=== PATIENT | female | born 1960 | race Two or more races ===

== ENCOUNTER 2016-06-27 17:56 | Inpatient (IN) | payer MEDICAID, OTHER ==
[2016-06-27] MEDS ORDERED: HYDROmorphone 1 MG/ML Syringe IVPUSH ONE (18:21)
[2016-06-27] MEDS ORDERED: Ondansetron 4 MG/2 ML SDV IVPUSH ONE (18:22)
[2016-06-27] MEDS ORDERED: Sodium Chloride 0.9% 1,000 ML IV SCH ×2 (18:30→22:00)
[2016-06-27] MEDS ORDERED: Sodium Chloride 0.9% 10 ML SDV FLUSH ONE (19:22)
[2016-06-27] MEDS ORDERED: Iopamidol 612 MG/ML 100 ML Bottle IV PRN (19:22)
[2016-06-27] MEDS: NS + KCl 20mEq/L 1,000 ML IV SCH (19:47)
[2016-06-27] MEDS ORDERED: metroNIDAZOLE/Normal Saline 500 MG in Premix Bag 1 BAG IV ONE (19:58)
[2016-06-27] MEDS ORDERED: Ciprofloxacin in D5W 400 MG in Premix Bag 1 BAG IV ONE ×2 (19:58)
[2016-06-27] MEDS ORDERED: Acetaminophen 1,000 MG in Premix Bag 1 BAG IV ONE (20:34)
--- NOTE | 2016-06-27 20:45 | EDM.PDOC ---
ED HPI GENERAL MEDICAL PROBLEM - General Chief Complaint: Abdominal Pain Stated Complaint: ABDOMINAL PAIN Time Seen by Provider: 06/27/16 18:10 Source of Information: Reports: Family, Size Painter History Limitations: Reports: Language Barrier - History of Present Illness INITIAL COMMENTS - FREE TEXT/NARRATIVE: History of present illness: [55-year-old female who is originally from [facility] presents with fever and abdominal pain. This is come on and last 2 days. She's been stateside for 7 years and has not returned home since coming. She lives at home and is to work there is no history of unusual tropical diseases while she was in [facility] and was able to obtain from the family. She is complaining of left flank and left lower quadrant abdominal pain. She's had some nausea and I think one episode of vomiting. She had an episode of diarrhea yesterday. She had a headache. No other symptoms but there is a significant language barrier Present.] Review of systems: As per history of present illness and below otherwise all systems reviewed and negative. Past medical history: As per history of present illness and as reviewed below otherwise noncontributory. Surgical history: As per history of present illness and as reviewed below otherwise noncontributory. Social history: No reported history of drug or alcohol abuse. Family history: As per history of present illness and as reviewed below otherwise noncontributory. Physical exam: HEENT: Atraumatic, normocephalic, pupils reactive, negative for conjunctival pallor or scleral icterus, mucous membranes moist, throat clear, neck supple, nontender, trachea midline. Lungs: Clear to auscultation, breath sounds equal bilaterally, chest nontender. Heart: S1S2, regular, negative for clicks, rubs, or JVD. Abdomen: She has mild tenderness to palpation along the left gutter and left lower quadrant. Otherwise her belly is not distended and does not seem to be any peritoneal signs. Bowel sounds are hypoactive. Pelvis: Stable nontender. Genitourinary: Deferred. Rectal: Deferred. Extremities: Atraumatic, negative for cords or calf pain. Neurovascular unremarkable. Neuro: Awake, alert, oriented. Cranial nerves II through XII unremarkable. Cerebellum unremarkable. Motor and sensory unremarkable throughout. Exam nonfocal. Diagnostics: [CBC demonstrates an elevated white count. See her PE is elevated above 10. Lactic acid is 2.5. She is slightly tachycardic but her blood pressure has been good. She is satting well without O2. Her mentation has been good chest x -ray appears clear with a normal size heart. Abdominal pelvic CT is showing a left pyelonephritis with air present within the calyces of the kidney. Air is also present within the bladder. Concern is raised for air producing gram- negative rods. Also she has the appearance of a chronic-appearing appendicitis. This does not appear acute and hence does not suggest the need for immediate surgical intervention.] Therapeutics: [She's received IV fluids. Her blood sugar sugar has been in the 200s but only treated that with IV fluids. I suspect she has underlying diabetes. I've ordered 400 mg of Cipro IV to be given in the ER. Blood cultures x2 have been obtained as well as urine culture.] Impression: [Left pyelonephritis Chronic appendicitis] Plan: [Patient will be admitted. I did speak with money who spoke with Dr. Forbes. We also spoke with the surgeon conference center coordinator regarding the appendix. He'll see her tomorrow. Patient will be treated with IV Cipro and IV Zosyn for her infection. ] Definitive disposition and diagnosis as appropriate pending reevaluation and review of above. Left Abdomen Pain Score (Numeric/FACES): 10 - Related Data Allergies Allergy/AdvReac Type Severity Reaction Status Date / Time No Known Allergies Allergy Verified 06/27/16 18:11 Home Meds: Home Meds NK [No Known Home Meds] 06/27/16 [History] Past Medical History - Past Health History Medical/Surgical History: Denies Medical/Surgical History Social & Family History - Tobacco Use Smoking Status *Q: Never Smoker - Caffeine Use Caffeine Use: Reports: Coffee, Soda - Recreational Drug Use Recreational Drug Use: No ED ROS GENERAL - Review of Systems Review Of Systems: ROS reveals no pertinent complaints other than HPI. ED EXAM, RENAL/ - Physical Exam Exam: See Below Course - Vital Signs Last Recorded V/S: Last Vital Signs Temp 38.6 C H 06/27/16 20:03 Pulse 104 H 06/27/16 20:03 Resp 18 06/27/16 20:03 BP 151/78 H 06/27/16 20:03 Pulse Ox 96 06/27/16 20:03 - Orders/Labs/Meds Orders: Active Orders 24 hr Category Date Time Status Rincon Catheter Insertion [Insert Urinary Catheter] [OM. Care 06/27/16 19:45 Ordered PC] Q24H Urinary Catheter Assessment [RC] ASDIRECTED Care 06/27/16 19:40 Active Abdomen Pelvis w Cont [CT] Stat Exams 06/27/16 19:12 Taken Chest 1V Frontal [CR] Stat Exams 06/27/16 18:23 Taken Head wo Cont [CT] Stat Exams 06/27/16 19:35 Taken CULTURE BLOOD [BC] Stat Lab 06/27/16 19:10 Received CULTURE BLOOD [BC] Stat Lab 06/27/16 19:10 Received CULTURE URINE [RM] Stat Lab 06/27/16 19:13 Received Acetaminophen [Ofirmev] 1,000 mg Med 06/27/16 20:34 Active Premix Bag 1 bag IV NOW Ciprofloxacin in D5W [Cipro in D5W 400 MG/200 ML] 400 Med 06/27/16 19:58 Active mg Premix Bag 1 bag IV ONETIME NS + KCl 20mEq/L [Normal Saline with 20 mEq KCl] 1,000 Med 06/27/16 19:45 Active ml IV ASDIRECTED metroNIDAZOLE/Normal Saline [Flagyl 500 MG in NS 100 ML Med 06/27/16 19:58 Active ] 500 mg Premix Bag 1 bag IV ONETIME Medication Orders Potassium Chloride/Sodium Chloride (Normal Saline With 20 Meq Kcl) 1,000 mls @ 150 mls/hr IV ASDIRECTED [facility] Last Admin: 06/27/16 19:47 Dose: 150 mls/hr Ciprofloxacin/Dextrose 400 mg/ (Premix) 200 mls @ 200 mls/hr IV ONETIME ONE Stop: 06/27/16 20:57 Last Admin: 06/27/16 20:25 Dose: 200 mls/hr Metronidazole 500 mg/ Premix 100 mls @ 100 mls/hr IV ONETIME ONE Stop: 06/27/16 20:57 Acetaminophen 1,000 mg/ Premix 100 mls @ 400 mls/hr IV NOW ONE Stop: 06/27/16 20:48 Labs: Laboratory Tests 06/27/16 06/27/16 06/27/16 Range/Units 18:28 18:28 18:38 WBC 16.4 H (4.5-11.0) K/uL RBC 4.65 (3.30-5.50) M/uL Hgb 14.0 (12.0-15.0) g/dL Hct 39.7 (36.0-48.0) % MCV 85 (80-98) fL MCH 30 (27-31) pg MCHC 35 (32-36) % Plt Count 281 (150-400) K/uL Add Manual Diff Yes Neutrophils % (Manual) 81 H (36-66) % Band Neutrophils % 16 H (5-11) % Lymphocytes % (Manual) 1 L (24-44) % Monocytes % (Manual) 2 (2-6) % ABG Hemoglobin (12.0-16.0) g/dL ABG Oxyhemoglobin % ABG Carboxyhemoglobin (0.0-1.6) % ABG Methemoglobin % VBG pH (7.350-7.450) VBG pCO2 mm/Hg VBG pO2 mm/Hg VBG HCO3 mmol/L VBG Total CO2 mmol/L VBG O2 Saturation VBG O2 Content %vol VBG Base Excess mm/L O2 Delivery Device Sodium 133 L (140-148) mmol/L Potassium 3.7 (3.6-5.2) mmol/L Chloride 94 L (100-108) mmol/L Carbon Dioxide 25 (21-32) mmol/L Anion Gap 17.7 H (5.0-14.0) mmol/L BUN 9 (7-18) mg/dL Creatinine 0.9 (0.6-1.0) mg/dL Est Cr Clr Drug Dosing 50.13 mL/min Estimated GFR (MDRD) > 60 (>60) Glucose 277 H (74-106) mg/dL Lactic Acid (0.4-2.0) mmol/L Calcium 8.4 L (8.5-10.1) mg/dL Total Bilirubin 1.0 (0.2-1.0) mg/dL AST 26 (15-37) U/L ALT 33 (12-78) U/L Alkaline Phosphatase 182 H (46-116) U/L C-Reactive Protein (0.0-0.3) mg/dL Total Protein 8.5 H (6.4-8.2) g/dL Albumin 3.8 (3.4-5.0) g/dL Globulin 4.7 H (2.3-3.5) g/dL Albumin/Globulin Ratio 0.8 L (1.2-2.2) Amylase 24 L (25-115) U/L Lipase 55 L (73-393) U/L TSH, Ultra Sensitive (0.358-3.740) uIU/mL Urine Color Urine Appearance Urine pH (4.5-8.0) Ur Specific [place] (1.008-1.030) Urine Protein (NEGATIVE) mg/dL Urine Glucose (UA) (NEGATIVE) mg/dL Urine Ketones (NEGATIVE) mg/dL Urine Occult Blood (NEGATIVE) Urine Nitrite (NEGATIVE) Urine Bilirubin (NEGATIVE) Urine Urobilinogen (NORMAL) mg/dL Ur Leukocyte Esterase (NEGATIVE) Urine RBC (0-5) Urine WBC (0-5) Ur Epithelial Cells Amorphous Sediment Urine Bacteria Urine Mucus Urine Opiates Screen Negative (NEGATIVE) Ur Oxycodone Screen Negative (NEGATIVE) Urine Methadone Screen Negative (NEGATIVE) Ur Propoxyphene Screen Negative (NEGATIVE) Ur Barbiturates Screen Negative (NEGATIVE) Ur Tricyclics Screen Negative (NEGATIVE) Ur Phencyclidine Scrn Negative (NEGATIVE) Ur Amphetamine Screen Negative (NEGATIVE) U Methamphetamines Scrn Negative (NEGATIVE) Urine MDMA Screen Negative (NEGATIVE) U Benzodiazepines Scrn Negative (NEGATIVE) U Cocaine Metab Screen Negative (NEGATIVE) U Marijuana (THC) Screen Negative (NEGATIVE) 06/27/16 06/27/16 06/27/16 Range/Units 18:38 18:53 18:53 WBC (4.5-11.0) K/uL RBC (3.30-5.50) M/uL Hgb (12.0-15.0) g/dL Hct (36.0-48.0) % MCV (80-98) fL MCH (27-31) pg MCHC (32-36) % Plt Count (150-400) K/uL Add Manual Diff Neutrophils % (Manual) (36-66) % Band Neutrophils % (5-11) % Lymphocytes % (Manual) (24-44) % Monocytes % (Manual) (2-6) % ABG Hemoglobin 13.0 (12.0-16.0) g/dL ABG Oxyhemoglobin 46.5 % ABG Carboxyhemoglobin 1.1 (0.0-1.6) % ABG Methemoglobin 0.7 % VBG pH 7.349 L (7.350-7.450) VBG pCO2 39.9 mm/Hg VBG pO2 26.9 mm/Hg VBG HCO3 21.4 mmol/L VBG Total CO2 19.6 mmol/L VBG O2 Saturation 47.4 VBG O2 Content 8.5 %vol VBG Base Excess -3.4 mm/L O2 Delivery Device Room air Sodium (140-148) mmol/L Potassium (3.6-5.2) mmol/L Chloride (100-108) mmol/L Carbon Dioxide (21-32) mmol/L Anion Gap (5.0-14.0) mmol/L BUN (7-18) mg/dL Creatinine (0.6-1.0) mg/dL Est Cr Clr Drug Dosing mL/min Estimated GFR (MDRD) (>60) Glucose (74-106) mg/dL Lactic Acid 2.5 H (0.4-2.0) mmol/L Calcium (8.5-10.1) mg/dL Total Bilirubin (0.2-1.0) mg/dL AST (15-37) U/L ALT (12-78) U/L Alkaline Phosphatase (46-116) U/L C-Reactive Protein (0.0-0.3) mg/dL Total Protein (6.4-8.2) g/dL Albumin (3.4-5.0) g/dL Globulin (2.3-3.5) g/dL Albumin/Globulin Ratio (1.2-2.2) Amylase (25-115) U/L Lipase (73-393) U/L TSH, Ultra Sensitive (0.358-3.740) uIU/mL Urine Color Yellow Urine Appearance Cloudy Urine pH 7.0 (4.5-8.0) Ur Specific [place] 1.005 L (1.008-1.030) Urine Protein Negative (NEGATIVE) mg/dL Urine Glucose (UA) 1000 H (NEGATIVE) mg/dL Urine Ketones 50 H (NEGATIVE) mg/dL Urine Occult Blood Negative (NEGATIVE) Urine Nitrite Negative (NEGATIVE) Urine Bilirubin Negative (NEGATIVE) Urine Urobilinogen Normal (NORMAL) mg/dL Ur Leukocyte Esterase Negative (NEGATIVE) Urine RBC 0-5 (0-5) Urine WBC 0-5 (0-5) Ur Epithelial Cells Rare Amorphous Sediment Not seen Urine Bacteria Many Urine Mucus Not seen Urine Opiates Screen (NEGATIVE) Ur Oxycodone Screen (NEGATIVE) Urine Methadone Screen (NEGATIVE) Ur Propoxyphene Screen (NEGATIVE) Ur Barbiturates Screen (NEGATIVE) Ur Tricyclics Screen (NEGATIVE) Ur Phencyclidine Scrn (NEGATIVE) Ur Amphetamine Screen (NEGATIVE) U Methamphetamines Scrn (NEGATIVE) Urine MDMA Screen (NEGATIVE) U Benzodiazepines Scrn (NEGATIVE) U Cocaine Metab Screen (NEGATIVE) U Marijuana (THC) Screen (NEGATIVE) 06/27/16 Range/Units 18:53 WBC (4.5-11.0) K/uL RBC (3.30-5.50) M/uL Hgb (12.0-15.0) g/dL Hct (36.0-48.0) % MCV (80-98) fL MCH (27-31) pg MCHC (32-36) % Plt Count (150-400) K/uL Add Manual Diff Neutrophils % (Manual) (36-66) % Band Neutrophils % (5-11) % Lymphocytes % (Manual) (24-44) % Monocytes % (Manual) (2-6) % ABG Hemoglobin (12.0-16.0) g/dL ABG Oxyhemoglobin % ABG Carboxyhemoglobin (0.0-1.6) % ABG Methemoglobin % VBG pH (7.350-7.450) VBG pCO2 mm/Hg VBG pO2 mm/Hg VBG HCO3 mmol/L VBG Total CO2 mmol/L VBG O2 Saturation VBG O2 Content %vol VBG Base Excess mm/L O2 Delivery Device Sodium (140-148) mmol/L Potassium (3.6-5.2) mmol/L Chloride (100-108) mmol/L Carbon Dioxide (21-32) mmol/L Anion Gap (5.0-14.0) mmol/L BUN (7-18) mg/dL Creatinine (0.6-1.0) mg/dL Est Cr Clr Drug Dosing mL/min Estimated GFR (MDRD) (>60) Glucose (74-106) mg/dL Lactic Acid (0.4-2.0) mmol/L Calcium (8.5-10.1) mg/dL Total Bilirubin (0.2-1.0) mg/dL AST (15-37) U/L ALT (12-78) U/L Alkaline Phosphatase (46-116) U/L C-Reactive Protein 10.36 H (0.0-0.3) mg/dL Total Protein (6.4-8.2) g/dL Albumin (3.4-5.0) g/dL Globulin (2.3-3.5) g/dL Albumin/Globulin Ratio (1.2-2.2) Amylase (25-115) U/L Lipase (73-393) U/L TSH, Ultra Sensitive 1.070 (0.358-3.740) uIU/mL Urine Color Urine Appearance Urine pH (4.5-8.0) Ur Specific [place] (1.008-1.030) Urine Protein (NEGATIVE) mg/dL Urine Glucose (UA) (NEGATIVE) mg/dL Urine Ketones (NEGATIVE) mg/dL Urine Occult Blood (NEGATIVE) Urine Nitrite (NEGATIVE) Urine Bilirubin (NEGATIVE) Urine Urobilinogen (NORMAL) mg/dL Ur Leukocyte Esterase (NEGATIVE) Urine RBC (0-5) Urine WBC (0-5) Ur Epithelial Cells Amorphous Sediment Urine Bacteria Urine Mucus Urine Opiates Screen (NEGATIVE) Ur Oxycodone Screen (NEGATIVE) Urine Methadone Screen (NEGATIVE) Ur Propoxyphene Screen (NEGATIVE) Ur Barbiturates Screen (NEGATIVE) Ur Tricyclics Screen (NEGATIVE) Ur Phencyclidine Scrn (NEGATIVE) Ur Amphetamine Screen (NEGATIVE) U Methamphetamines Scrn (NEGATIVE) Urine MDMA Screen (NEGATIVE) U Benzodiazepines Scrn (NEGATIVE) U Cocaine Metab Screen (NEGATIVE) U Marijuana (THC) Screen (NEGATIVE) Meds: Medications Generic Name Dose Route Start Last Admin Trade Name Chrisq PRN Reason Stop Dose Admin Potassium Chloride/Sodium Chloride 1,000 mls @ 150 mls/hr 06/27/16 19:45 01/03 19:47 Normal Saline With 20 Meq Kcl IV 150 mls/hr ASDIRECTED OPAL Administration Ciprofloxacin/Dextrose 400 mg/ 200 mls @ 200 mls/hr 06/27/16 19:58 06/27/16 20:25 Premix IV 06/27/16 20:57 200 mls/hr ONETIME ONE Administration Metronidazole 500 mg/ Premix 100 mls @ 100 mls/hr 06/27/16 19:58 IV 06/27/16 20:57 ONETIME ONE Acetaminophen 1,000 mg/ Premix 100 mls @ 400 mls/hr 06/27/16 20:34 IV 06/27/16 20:48 NOW ONE Discontinued Medications Generic Name Dose Route Start Last Admin Trade Name Vicente PRN Reason Stop Dose Admin Hydromorphone HCl 0.5 mg 06/27/16 18:21 06/27/16 18:45 Dilaudid IVPUSH 06/27/16 18:22 0.5 mg ONETIME ONE Administration Sodium Chloride 1,000 mls @ 999 mls/hr 06/27/16 18:30 06/27/16 18:41 Normal Saline IV 500 mls/hr ASDIRECTED OPAL Administration Sodium Chloride 70 mls @ 3 mls/sec 06/27/16 19:22 06/27/16 19:45 Normal Saline IV 06/27/16 19:23 3 mls/sec ONETIME ONE Administration Iopamidol 78 ml 06/27/16 19:22 06/27/16 19:45 Isovue-300 (61%) IV 06/27/16 19:23 100 ml . DIRECTED PRN Administration RADIOLOGY EXAM Ondansetron HCl 4 mg 06/27/16 18:22 06/27/16 18:42 Zofran IVPUSH 06/27/16 18:23 4 mg ONETIME ONE Administration Sodium Chloride 10 ml 06/27/16 19:22 Normal Saline FLUSH 06/27/16 19:23 ONETIME ONE Departure - Departure Time of Disposition: 20:45 Disposition: Admitted As Inpatient 65 Condition: fair Clinical Impression: Acute pyelonephritis, Chronic appendicitis - Discharge Information Forms: ED Department Discharge - My Orders Last 24 Hours: My Active Orders 06/27/16 18:23 Chest 1V Frontal [CR] Stat 06/27/16 19:10 CULTURE BLOOD [BC] Stat CULTURE BLOOD [BC] Stat 06/27/16 19:12 Abdomen Pelvis w Cont [CT] Stat 06/27/16 19:13 CULTURE URINE [RM] Stat 06/27/16 19:35 Head wo Cont [CT] Stat 06/27/16 19:40 Urinary Catheter Assessment [RC] ASDIRECTED 06/27/16 19:45 Rincon Catheter Insertion [Insert Urinary Catheter] [OM.PC] Q24H NS + KCl 20mEq/L [Normal Saline with 20 mEq KCl] 1,000 ml IV ASDIRECTED 06/27/16 19:58 Ciprofloxacin in D5W [Cipro in D5W 400 MG/200 ML] 400 mg Premix Bag 1 bag IV ONETIME metroNIDAZOLE/Normal Saline [Flagyl 500 MG in NS 100 ML] 500 mg Premix Bag 1 bag IV ONETIME - Assessment/Plan Last 24 Hours: My Active Orders 06/27/16 18:23 Chest 1V Frontal [CR] Stat 06/27/16 19:10 CULTURE BLOOD [BC] Stat CULTURE BLOOD [BC] Stat 06/27/16 19:12 Abdomen Pelvis w Cont [CT] Stat 06/27/16 19:13 CULTURE URINE [RM] Stat 06/27/16 19:35 Head wo Cont [CT] Stat 06/27/16 19:40 Urinary Catheter Assessment [RC] ASDIRECTED 06/27/16 19:45 Rincon Catheter Insertion [Insert Urinary Catheter] [OM.PC] Q24H NS + KCl 20mEq/L [Normal Saline with 20 mEq KCl] 1,000 ml IV ASDIRECTED 06/27/16 19:58 Ciprofloxacin in D5W [Cipro in D5W 400 MG/200 ML] 400 mg Premix Bag 1 bag IV ONETIME metroNIDAZOLE/Normal Saline [Flagyl 500 MG in NS 100 ML] 500 mg Premix Bag 1 bag IV ONETIME
[2016-06-27] MEDS ORDERED: Diphtheria,Pertussis(Acell),Tetanus Vaccine 0.5 ML SDV IM ONE (21:28)
[2016-06-27] MEDS ORDERED: Sodium Chloride 0.9% 1,000 ML IV ONE (23:21)
[2016-06-27] MEDS ORDERED: Hydrocortisone Sodium Succinate 100 MG/2 ML SDV IVPUSH ONE (23:21)
[2016-06-27] MEDS ORDERED: Ondansetron 4 MG/2 ML SDV IVPUSH PRN (23:23)
[2016-06-27] MEDS ORDERED: LORazepam 2 MG/ML MDV IV PRN (23:23)
[2016-06-27] MEDS ORDERED: Albuterol 0.083% 2.5 MG/3 ML Neb Soln NEB PRN (23:23)
[2016-06-27] MEDS ORDERED: Docusate Sodium 100 MG Cap PO PRN (23:23)
[2016-06-27] MEDS ORDERED: Magnesium Hydroxide 400 MG/5 ML Susp 30 ML Cup PO PRN (23:23)
[2016-06-27] MEDS ORDERED: HYDROmorphone 1 MG/ML Syringe IVPUSH PRN (23:23)
[2016-06-27] MEDS ORDERED: Ascorbic Acid 500 MG Tab PO ONE (23:28)
[2016-06-28] MEDS ORDERED: Pantoprazole 40 MG Vial IV SCH
[2016-06-28] MEDS ORDERED: Piperacillin/Tazobactam 3.375 GM in Sodium Chloride 0.9% 50 ML IV SCH ×2
[2016-06-28] MEDS ORDERED: Sodium Chloride 0.9% 100 ML ONE ×2 (00:27→05:24)
--- NOTE | 2016-06-28 00:28 | PCM.HP ---
H&P History of Present Illness - General Date of Service: 06/27/16 Admit Problem/Dx: Admission Diagnosis/Problem Admission Diagnosis/Problem Pyelonephritis Source of Information: Filling Mixer (Milla) History Limitations: Reports: Other (lethargic) - History of Present Illness Initial Comments - Free Text/Narative: ED Renal/ Complaint Patient Name: THERESE LUNDBERG Date of : 58 Patient Status: Inpatient Attending Provider: Chalino Forbes Date: 06/27/16 20:38 Initialization Date: 06/27/16 20:38 ED HPI GENERAL MEDICAL PROBLEM - General Chief Complaint: Abdominal Pain Stated Complaint: ABDOMINAL PAIN Time Seen by Provider: 06/27/16 18:10 Source of Information: Reports: Family, Filling Mixer History Limitations: Reports: Language Barrier - History of Present Illness INITIAL COMMENTS - FREE TEXT/NARRATIVE: History of present illness: 55-year-old female who is originally from [facility] presents with fever and abdominal pain. This is come on and last 2 days. [place] been [place] and has not returned home since coming. She lives at home and is to work there is no history of unusual tropical diseases while she was in [facility] and was able to obtain from the family. She is complaining of left flank and left lower quadrant abdominal pain. She's had some nausea and I think one episode of vomiting. She had an episode of diarrhea yesterday. She had a headache. No other symptoms but there is a significant language barrier Present.] Review of systems: As per history of present illness and below otherwise all systems reviewed and negative. Past medical history: As per history of present illness and as reviewed below otherwise noncontributory. reports has never been to a hospital or clinic. no history of immunization has 12 children all delivered at her home. Surgical history: As per history of present illness and as reviewed below otherwise noncontributory. Social history: No reported history of drug or alcohol abuse. Family history: As per history of present illness and as reviewed below otherwise noncontributory. Physical exam: HEENT: Atraumatic, normocephalic, pupils reactive, negative for conjunctival pallor or scleral icterus, mucous membranes moist, throat clear, neck supple, nontender, trachea midline. Lungs: Clear to auscultation, breath sounds equal bilaterally, chest nontender. Heart: S1S2, regular, negative for clicks, rubs, or JVD. Abdomen: She has mild tenderness to palpation along the left gutter and left lower quadrant. Otherwise her belly is not distended and does not seem to be any peritoneal signs. Bowel sounds are hypoactive. Pelvis: Stable nontender. Genitourinary: Deferred. Rectal: Deferred. Extremities: Atraumatic, negative for cords or calf pain. Neurovascular unremarkable. Neuro: Awake, alert, oriented. Cranial nerves II through XII unremarkable. Cerebellum unremarkable. Motor and sensory unremarkable throughout. Exam nonfocal. Diagnostics: [CBC demonstrates an elevated white count. See her PE is elevated above 10. Lactic acid is 2.5. She is slightly tachycardic but her blood pressure has been good. She is oxygenating well without O2. Her mentation has been good, chest x-ray appears clear with a normal size heart. Abdominal pelvic CT is showing a left pyelonephritis with air present within the calyces of the kidney. Air is also present within the bladder. Concern is raised for air producing gram-negative rods. Also she has the appearance of a chronic- appearing appendicitis. This does not appear acute and hence does not suggest the need for immediate surgical intervention. Therapeutics: [She's received IV fluids. Her blood sugar sugar has been in the 200s but only treated that with IV fluids. I suspect she has underlying diabetes. I've ordered 400 mg of Cipro IV to be given in the ER. Blood cultures x2 have been obtained as well as urine culture.] Impression: [Left pyelonephritis Chronic appendicitis] Plan: [Patient will be admitted. I did speak with money who spoke with Dr. Forbes. We also spoke with the surgeon spinner concrete pipe regarding the appendix. He'll see her tomorrow. Patient will be treated with IV Cipro and IV Zosyn for her infection. ] Definitive disposition and diagnosis as appropriate pending reevaluation and review of above. Onset of Symptoms: Reports: gradual Duration of Symptoms: Reports: Resolved prior to arrival Location: Reports: abdomen (family report she has been complaining of right lower abdominal pain for 2 months, fevers for the past 2 days) Quality: Reports: Other (unable to assess due to language barrier) Improves with: Reports: None Worsens with: Reports: None Associated Symptoms: Reports: fever/chills, loss of appetite, malaise, nausea/ vomiting, weakness Left Abdomen Pain Score (Numeric/FACES): 10 - Related Data Allergies/Adverse Reactions: Allergies Allergy/AdvReac Type Severity Reaction Status Date / Time No Known Allergies Allergy Verified 06/27/16 18:11 Home Medications: Home Meds NK [No Known Home Meds] 06/27/16 [History] Past Medical History - Past Health History Medical/Surgical History: Denies 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: Social & Family History - Family History Family Medical History: Noncontributory - Tobacco Use Smoking Status *Q: Never Smoker - Caffeine Use Caffeine Use: Reports: Coffee, Soda - Recreational Drug Use Recreational Drug Use: No - Living Situation & Occupation Living situation: Reports: with family Occupation: unemployed (lives family, daughter, grandchildren and extended family and friends in [place], [place].) H&P Review of Systems - Review of Systems: Review Of Systems: See Below General: Reports: Fever, Chills, Malaise, Decreased Appetite HEENT: Reports: No Symptoms Pulmonary: Reports: No Symptoms Cardiovascular: Reports: No Symptoms Gastrointestinal: Reports: Abdominal Pain, Nausea Genitourinary: Reports: Dysuria, Frequency, Hematuria, Flank Pain Musculoskeletal: Reports: No Symptoms Skin: Reports: Pallor Psychiatric: Reports: No Symptoms Neurological: Reports: Weakness Hematologic/Lymphatic: Reports: No Symptoms Immunologic: Reports: No Symptoms Review of Systems Comment:: language barrier; speaks a dialect of Croatian slovak called Jackeline. She has a friend here at bedside to speak on behalf of patient and family. Exam - Exam Exam: See Below - Vital Signs Vital Signs: Last Vital Signs Temp 38.9 C H 06/27/16 23:11 Pulse 98 06/28/16 00:00 Resp 18 06/27/16 23:11 BP 61/33 L 06/28/16 00:00 Pulse Ox 97 06/28/16 00:00 Weight: 52.3 kg - Exam Quality Assessment: Supplemental Oxygen General: Lethargic HEENT: Conjunctiva Clear, EACs Clear, EOMI, Hearing Intact (opens eyes to voice) , Normal Nasal Septum, Posterior Pharynx Clear, Pupils Equal, Pupils Reactive Neck: Supple, Trachea Midline Lungs: Clear to Auscultation, Normal Respiratory Effort Cardiovascular: Regular Rhythm, Normal S1, Normal S2, Tachycardia Abdomen: Rebound (rlq), Tenderness (and left flank), Hypoactive Bowel Sounds, McBurney's Sign (Female) Exam: Deferred Rectal (Female) Exam: Deferred Back Exam: Normal Inspection, Full Range of Motion Extremities: Normal Inspection, Normal Pulses Skin: Warm, Dry, Intact, Other (warm) Neurological: Reflexes Equal Bilateral Neuro Extensive - Mental Status: Opens Eyes to Commands Psychiatric: Other (lethargic) - Patient Data Result Diagrams: 06/28/16 04:16 06/28/16 04:16 *Q Meaningful Use (ADM) - VTE *Q VTE Criteria *Q: - Stroke *Q Stroke Criteria *Q: - AMI *Q AMI Criteria *Q: - Problem List (1) Acute pyelonephritis SNOMED Code(s): 22942226 ICD Code: N10 - ACUTE PYELONEPHRITIS Status: Acute Priority: High Current Visit: Yes (2) Chronic appendicitis SNOMED Code(s): 80875730 ICD Code: K36 - OTHER APPENDICITIS Status: Acute Priority: High Current Visit: Yes Problem List Initiated/Reviewed/Updated: Yes Orders Last 24hrs: Active Orders 24 hr Category Date Time Status Patient Status [ADT] Routine ADT 06/27/16 23:23 Active Bedrest Bathroom Privileges [RC] ASDIRECTED Care 06/27/16 23:23 Active Cardiac Monitoring [RC] .As Directed Care 06/27/16 23:23 Active Diabetes Education [RC] Click to Edit Care 06/27/16 23:23 Active Intake and Output [RC] QSHIFT Care 06/27/16 23:23 Active Notify Provider Consults [RC] ASDIRECTED Care 06/27/16 23:23 Active Oxygen Therapy [RC] PRN Care 06/27/16 23:23 Active RT Aerosol Therapy [RC] ASDIRECTED Care 06/27/16 23:23 Active Up With Assistance [RC] ASDIRECTED Care 06/27/16 23:23 Active VTE/DVT Education [RC] Per Unit Routine Care 06/27/16 23:23 Active Vital Signs [RC] Q4H Care 06/27/16 23:23 Active Consult to Case Management [CONS] Routine Cons 06/27/16 23:23 Active Consult to Physician [CONS] Routine Cons 06/27/16 23:23 Ordered Consult to Fulfillment Coordinator [CONS] Routine Cons 06/27/16 23:23 Active OT Evaluation and Treatment [CONS] Routine Cons 06/27/16 23:23 Active PT Evaluation and Treatment [CONS] Routine Cons 06/27/16 23:23 Active Nothing per Oral After Midnight Diet [DIET] Diet 06/27/16 Breakfast Active BASIC METABOLIC PANEL,BMP [CHEM] AM Lab 06/28/16 05:11 Ordered CBC WITH AUTO DIFF [HEME] AM Lab 06/28/16 05:11 Ordered LACTIC ACID [CHEM] Timed Lab 06/28/16 00:10 Ordered Albuterol [Proventil Neb Soln] Med 06/27/16 23:23 Active 2.5 mg NEB Q4H PRN Docusate Sodium [Colace] Med 06/27/16 23:23 Active 100 mg PO BID PRN Flu Vaccine (36Mos+)/PF [Fluzone/Fluarix Med 06/29/16 09:00 Once Vaccine] 60 mcg IM .ONCE ONE HYDROmorphone [Dilaudid] Med 06/28/16 00:22 Ordered See Dose Instructions IVPUSH Q2H PRN Insulin Aspart [NovoLOG] Med 06/27/16 23:23 Active See Protocol SUBCUT ASDIRECTED LORazepam [Ativan] Med 06/27/16 23:23 Active 1 mg IV Q6H PRN Magnesium Hydroxide [Milk of Magnesia] Med 06/27/16 23:23 Active 30 ml PO Q12H PRN Morphine Med 06/27/16 23:23 Active 2 mg IVPUSH Q2H PRN Ondansetron [Zofran] Med 06/27/16 23:23 Active 4 mg IVPUSH Q4H PRN Pantoprazole [ProTONIX IV] Med 06/28/16 00:00 Active 40 mg IV Q12H Piperacillin/Tazobactam/Dext [Zosyn in Dextrose Iso- Med 06/28/16 00:00 Active Osmotic 3.375 GM] 3.375 gm Premix Bag 1 bag IV Q6H Sequential Compression Device [OM.PC] Per Unit Routine Oth 06/27/16 23:23 Ordered Resuscitation Status Routine Resus Stat 06/27/16 21:57 Ordered Medication Orders Albuterol (Proventil Neb Soln) 2.5 mg NEB Q4H PRN PRN Reason: Shortness Of Breath/wheezing Docusate Sodium (Colace) 100 mg PO BID PRN PRN Reason: Constipation Potassium Chloride/Sodium Chloride (Normal Saline With 20 Meq Kcl) 1,000 mls @ 150 mls/hr IV ASDIRECTED [facility] Last Admin: 06/27/16 19:47 Dose: 150 mls/hr Sodium Chloride (Normal Saline) 1,000 mls @ 500 mls/hr IV ASDIRECTED [facility] Last Admin: 06/27/16 22:09 Dose: 500 mls/hr Piperacillin/Tazobactam/ (Dextrose 3.375 gm/ Premix) 50 mls @ 100 mls/hr IV Q6H [facility] Influenza Virus Vaccine (Fluzone/Fluarix Vaccine) 60 mcg IM .ONCE ONE Stop: 06/29/16 09:01 Insulin Aspart (Novolog) 0 unit SUBCUT ASDIRECTED [facility] PRN Reason: Protocol Lorazepam (Ativan) 1 mg IV Q6H PRN PRN Reason: Nausea/Vomiting Magnesium Hydroxide (Milk Of Magnesia) 30 ml PO Q12H PRN PRN Reason: Constipation Morphine Sulfate (Morphine) 2 mg IVPUSH Q2H PRN PRN Reason: Pain (severe 7-10) Ondansetron HCl (Zofran) 4 mg IVPUSH Q4H PRN PRN Reason: Nausea/Vomiting Pantoprazole Sodium (Protonix Iv) 40 mg IV Q12H [facility] Last Admin: 06/28/16 00:18 Dose: 40 mg Assessment/Plan Comment:: ASSESSMENT / PLAN History of present illness: 55-year-old female who is originally from [facility] presents with fever and abdominal pain. This is come on and last 2 days. She[place] been [place] 7 [place] and has not returned home since coming. She lives at home and is to work there is no history of unusual tropical diseases while she was in [facility] and was able to obtain from the family. She is complaining of left flank and left lower quadrant abdominal pain. She's had some nausea and I think one episode of vomiting. She had an episode of diarrhea yesterday. She had a headache. No other symptoms but there is a significant language barrier Present. Plan -Admit to ICU Med overflow for further monitoring -IV antibiotics Zoysn 3.375 mg IV every 6 hours -IV Hydrocortisone 100 mg IV -IV medicate for pain. -IV bolus for hypotension -Lactic acid order for 2400, 0600 -Telemetry -Oxygen per nasal cannula -IV fluids Normal Saline with 20 KCL meq at 150 mL per hour -Advise to notify nurses of any chest pain or other symptoms -immunization; Tdap 0.5ml updated. -And a.m. labs: CBC, BMP, lactic acid -consult Dr. Parrish, Surgeon, will evaluate in am. -consult with Internal Medicine Maintenance issues -Nutrition: NPO -Rincon catheter -DVT: SCD -PPI; Protonix 40 mg IV -referral to Fulfillment Coordinator, PT, OT CODE STATUS: Full Admission status: Admit to ICU Medication Overflow Admission justification. This patient will be admitted for inpatient services and is medically appropriate meeting medical necessity for inpatient admission as outlined in my documentation. I reasonably expect the patient will require inpatient services that span. Time over 2 midnights. I reasonably expect this patient to be discharged or transferred within 96 hours after admission to the critical access hospital. Disposition; home with family Primary care provider: non noted family Filling Mixer: Milla [phone]
[2016-06-28] MEDS: Piperacillin/Tazobactam/Dext 3.375 GM in Premix Bag 1 BAG IV SCH ×5 (00:36→23:45)
[2016-06-28] MEDS: Norepinephrine 4 MG in Dextrose 5% in Water 246 ML IV SCH ×10 (01:04→21:26)
[2016-06-28] MEDS: NS + KCl 20mEq/L 1,000 ML IV SCH ×4 (02:18→22:51)
[2016-06-28] MEDS ORDERED: Sodium Chloride 0.9% 250 ML IV SCH (02:30)
[2016-06-28] MEDS ORDERED: Acetaminophen 1,000 MG in Premix Bag 1 BAG IV PRN (05:02)
[2016-06-28] MEDS: Insulin Aspart 100 Units/ML 3 ML Pen SUBCUT SCH ×5 (05:54→21:13)
[2016-06-28] MEDS: HYDROmorphone 1 MG/ML Syringe IVPUSH PRN ×3 (06:09→16:14)
[2016-06-28] MEDS ORDERED: Ketorolac 30 MG/ML SDV IVPUSH PRN (08:17)
[2016-06-28] MEDS ORDERED: Acetaminophen 325 MG Tab PO PRN (08:18)
--- NOTE | 2016-06-28 08:32 | CR ---
Chest 1V Frontal INDICATION: abd pain COMPARISON: None FINDINGS: 2 portable views of the chest. Heart size normal. Ill-defined density in the left suprahilar region likely vascular though pulmonary nodule not exclud ed. Probable calcified granulomas in the lungs. No focal consolidation or signs of pulmonary edema. No pleural effusions. IMPRESSION: 1. Nothing acute. 2. Presumed vascular shadow left suprahilar region though comparison with prior outside studies mike mmended to exclude pulmonary nodule. If none, recommend CT chest without IV contrast. 3. Old granulomatous disease.
[2016-06-28] MEDS ORDERED: Potassium Chloride 20 MEQ Tab.ER PO ONE (09:00)
[2016-06-28] MEDS ORDERED: Sodium Chloride 0.9% 500 ML IV SCH (09:00)
--- NOTE | 2016-06-28 09:23 | PCM.PN ---
- General Info Date of Service: 06/28/16 Functional Status: Reports: pain controlled, ambulating - Review of Systems General: Reports: Fever, Weakness Gastrointestinal: Denies: Abdominal pain Systems Review Comment:: Overnight Ai had deterioration of her blood pressure following admission. She required multiple fluid boluses and despite this she had persistent hypotension necessitating the initiation of norepinephrine. Her blood pressure has stabilized after the medication was titrated up to 12 mcg per minute. She also received a dose of hydrocortisone last night. Temperature curve has been slowly improving. Heart rate has normalized. Through the help of her daughter in a separate phlebotomy technologist she reports that she feels a little better today. She does not report any pain though she does grimace when I press on the left side of her abdomen. She does not feel short of breath. She's not requiring supplemental oxygen. - Patient Data Vitals - most recent: Last Vital Signs Temp 38.3 C H 06/28/16 07:41 Pulse 94 06/28/16 07:41 Resp 23 H 06/28/16 07:41 BP 92/50 L 06/28/16 07:41 Pulse Ox 97 06/28/16 07:41 Weight - most recent: 52.3 kg I&O - last 24 hours: Intake & Output 06/27/16 06/28/16 06/28/16 22:59 06:59 14:59 Intake Total 2146 500 Output Total 650 187 185 Balance -650 1959 315 Lab Results last 24 hrs: Laboratory Results - last 24 hr 06/28/16 06/28/16 06/28/16 Range/Units 04:16 04:16 04:16 WBC 20.8 H (4.5-11.0) K/uL RBC 3.68 (3.30-5.50) M/uL Hgb 11.1 L D (12.0-15.0) g/dL Hct 32.0 L (36.0-48.0) % MCV 87 (80-98) fL MCH 30 (27-31) pg MCHC 35 (32-36) % Plt Count 223 (150-400) K/uL Add Manual Diff Yes Neutrophils % (Manual) 77 H (36-66) % Band Neutrophils % 16 H (5-11) % Lymphocytes % (Manual) 3 L (24-44) % Monocytes % (Manual) 3 (2-6) % Eosinophils % (Manual) 1 L (2-4) % Sodium 135 L (140-148) mmol/L Potassium 3.3 L (3.6-5.2) mmol/L Chloride 102 (100-108) mmol/L Carbon Dioxide 18 L (21-32) mmol/L Anion Gap 18.3 H (5.0-14.0) mmol/L BUN 11 (7-18) mg/dL Creatinine 1.2 H (0.6-1.0) mg/dL Est Cr Clr Drug Dosing 37.60 mL/min Estimated GFR (MDRD) 46 L (>60) Glucose 336 H (74-106) mg/dL Hemoglobin A1c (4.5-6.2) % Lactic Acid 1.8 (0.4-2.0) mmol/L Calcium 6.4 L* D (8.5-10.1) mg/dL Magnesium (1.8-2.4) mg/dL 06/28/16 06/28/16 Range/Units 08:27 08:27 WBC (4.5-11.0) K/uL RBC (3.30-5.50) M/uL Hgb (12.0-15.0) g/dL Hct (36.0-48.0) % MCV (80-98) fL MCH (27-31) pg MCHC (32-36) % Plt Count (150-400) K/uL Add Manual Diff Neutrophils % (Manual) (36-66) % Band Neutrophils % (5-11) % Lymphocytes % (Manual) (24-44) % Monocytes % (Manual) (2-6) % Eosinophils % (Manual) (2-4) % Sodium (140-148) mmol/L Potassium (3.6-5.2) mmol/L Chloride (100-108) mmol/L Carbon Dioxide (21-32) mmol/L Anion Gap (5.0-14.0) mmol/L BUN (7-18) mg/dL Creatinine (0.6-1.0) mg/dL Est Cr Clr Drug Dosing mL/min Estimated GFR (MDRD) (>60) Glucose (74-106) mg/dL Hemoglobin A1c 12.5 H (4.5-6.2) % Lactic Acid (0.4-2.0) mmol/L Calcium (8.5-10.1) mg/dL Magnesium 1.0 L (1.8-2.4) mg/dL Med Orders - Current: Current Medications Acetaminophen (Tylenol) 650 mg PO Q4H PRN PRN Reason: Pain/Fever Albuterol (Proventil Neb Soln) 2.5 mg NEB Q4H PRN PRN Reason: Shortness Of Breath/wheezing Docusate Sodium (Colace) 100 mg PO BID PRN PRN Reason: Constipation Hydrocortisone Sodium Succinate (Solu-Cortef) 100 mg IVPUSH ONETIME ONE Stop: 06/28/16 09:31 Hydromorphone HCl (Dilaudid) 0.5 - 1 mg IVPUSH Q2H PRN PRN Reason: Abdominal Pain Last Admin: 06/28/16 06:09 Dose: 0.5 mg Potassium Chloride/Sodium Chloride (Normal Saline With 20 Meq Kcl) 1,000 mls @ 150 mls/hr IV ASDIRECTED [facility] Last Admin: 06/28/16 09:19 Dose: 150 mls/hr Piperacillin/Tazobactam/ (Dextrose 3.375 gm/ Premix) 50 mls @ 100 mls/hr IV Q6H [facility] Last Admin: 06/28/16 05:40 Dose: 100 mls/hr Norepinephrine Bitartrate 4 mg (/ Dextrose/Water) 250 mls @ 7.5 mls/hr IV TITRATE [facility]; 2 MCG/MIN PRN Reason: Protocol Last Admin: 06/28/16 07:24 Dose: 12 mcg/min, 45 mls/hr Sodium Chloride (Normal Saline) 500 mls @ 999 mls/hr IV ASDIRECTED [facility] Stop: 06/28/16 09:31 Last Admin: 06/28/16 09:21 Dose: 999 mls/hr Influenza Virus Vaccine (Fluzone/Fluarix 2015- Vaccine) 60 mcg IM .ONCE ONE Stop: 06/29/16 09:01 Insulin Aspart (Novolog) 0 unit SUBCUT ASDIRECTED [facility] PRN Reason: Protocol Last Admin: 06/28/16 07:50 Dose: 5 units Ketorolac Tromethamine (Toradol) 15 mg IVPUSH Q6H PRN PRN Reason: Pain/Fever Stop: 07/03/16 08:18 Lorazepam (Ativan) 1 mg IV Q6H PRN PRN Reason: Nausea/Vomiting Magnesium Hydroxide (Milk Of Magnesia) 30 ml PO Q12H PRN PRN Reason: Constipation Morphine Sulfate (Morphine) 2 mg IVPUSH Q2H PRN PRN Reason: Pain (severe 7-10) Ondansetron HCl (Zofran) 4 mg IVPUSH Q4H PRN PRN Reason: Nausea/Vomiting Pantoprazole Sodium (Protonix Iv) 40 mg IV Q12H [facility] Last Admin: 06/28/16 00:18 Dose: 40 mg Discontinued Medications Ascorbic Acid (Vitamin C) 500 mg PO ONETIME ONE Stop: 06/27/16 23:29 Last Admin: 06/28/16 01:12 Dose: Not Given Diphtheria/Tetanus/Acell Pertussis (Adacel) 0.5 ml IM .ONCE ONE Stop: 06/27/16 21:29 Last Admin: 06/28/16 01:29 Dose: 0.5 ml Hydrocortisone Sodium Succinate (Solu-Cortef) 100 mg IVPUSH ONETIME ONE Stop: 06/27/16 23:22 Last Admin: 06/28/16 00:32 Dose: 100 mg Hydromorphone HCl (Dilaudid) 0.5 mg IVPUSH ONETIME ONE Stop: 06/27/16 18:22 Last Admin: 06/27/16 18:45 Dose: 0.5 mg Hydromorphone HCl (Dilaudid) 1 mg IVPUSH Q2H PRN PRN Reason: Abdominal Pain Last Admin: 06/27/16 23:45 Dose: 1 mg Sodium Chloride (Normal Saline) 1,000 mls @ 999 mls/hr IV ASDIRECTED [facility] Last Admin: 06/27/16 18:41 Dose: 500 mls/hr Sodium Chloride (Normal Saline) 70 mls @ 3 mls/sec IV ONETIME ONE Stop: 06/27/16 19:23 Last Admin: 06/27/16 19:45 Dose: 3 mls/sec Ciprofloxacin/Dextrose 400 mg/ (Premix) 200 mls @ 200 mls/hr IV ONETIME ONE Stop: 06/27/16 20:57 Last Admin: 06/27/16 20:25 Dose: 200 mls/hr Metronidazole 500 mg/ Premix 100 mls @ 100 mls/hr IV ONETIME ONE Stop: 06/27/16 20:57 Last Admin: 06/27/16 22:05 Dose: Not Given Acetaminophen 1,000 mg/ Premix 100 mls @ 400 mls/hr IV NOW ONE Stop: 06/27/16 20:48 Last Admin: 06/27/16 21:04 Dose: 400 mls/hr Sodium Chloride (Normal Saline) 1,000 mls @ 500 mls/hr IV ASDIRECTED [facility] Last Admin: 06/27/16 22:09 Dose: 500 mls/hr Sodium Chloride (Normal Saline) 1,000 mls @ 999 mls/hr IV .BOLUS ONE Stop: 06/28/16 00:21 Last Admin: 06/27/16 23:48 Dose: 999 mls/hr Piperacillin Sod/Tazobactam (Sod 3.375 gm/ Sodium Chloride) 50 mls @ 100 mls/ hr IV Q6H [facility] Sodium Chloride (Normal Saline) Confirm Administered Dose 100 mls @ as directed .ROUTE .STK-MED ONE Stop: 06/28/16 00:28 Last Admin: 06/28/16 00:40 Dose: Not Given Sodium Chloride (Normal Saline) 250 mls @ 999 mls/hr IV ASDIRECTED [facility] Stop: 06/28/16 02:46 Last Admin: 06/28/16 02:57 Dose: 999 mls/hr Acetaminophen 1,000 mg/ Premix 100 mls @ 400 mls/hr IV Q6H PRN PRN Reason: Fever Stop: 06/29/16 05:03 Last Admin: 06/28/16 05:19 Dose: 400 mls/hr Sodium Chloride (Normal Saline) Confirm Administered Dose 100 mls @ as directed .ROUTE .STK-MED ONE Stop: 06/28/16 05:25 Last Admin: 06/28/16 05:32 Dose: Not Given Iopamidol (Isovue-300 (61%)) 78 ml IV . DIRECTED PRN PRN Reason: RADIOLOGY EXAM Stop: 06/27/16 19:23 Last Admin: 06/27/16 19:45 Dose: 100 ml Ondansetron HCl (Zofran) 4 mg IVPUSH ONETIME ONE Stop: 06/27/16 18:23 Last Admin: 06/27/16 18:42 Dose: 4 mg Potassium Chloride (Klor-Con M20) 40 meq PO ONETIME ONE Stop: 06/28/16 09:01 Sodium Chloride (Normal Saline) 10 ml FLUSH ONETIME ONE Stop: 06/27/16 19:23 Last Admin: 06/28/16 00:04 Dose: Not Given - Exam Quality Assessment: supplemental oxygen, urine catheter General: alert, cooperative, no acute distress Neck: supple Lungs: Normal respiratory effort, Rales (few scattered rales throughout). No: Wheezing Cardiovascular: Regular Rate, Regular Rhythm. No: Murmurs Abdomen: bowel sounds present, soft, no distension, tenderness (mild left flank pain). No: guarding Extremities: no edema, normal pulses Skin: warm, dry Psy/Mental Status: alert, normal affect - Problem List Review Problem List Initiated/Reviewed/Updated: Yes - My Orders Last 24 Hours: My Active Orders 06/28/16 00:00 Piperacillin/Tazobactam/Dext [Zosyn in Dextrose Iso-Osmotic 3.375 GM] 3.375 gm Premix Bag 1 bag IV Q6H 06/28/16 08:11 Patient Status [ADT] Routine 06/28/16 08:17 Ketorolac [Toradol] 15 mg IVPUSH Q6H PRN 06/28/16 08:18 Acetaminophen [Tylenol] 650 mg PO Q4H PRN 06/28/16 09:00 Sodium Chloride 0.9% [Normal Saline] 500 ml IV ASDIRECTED 06/28/16 09:30 Hydrocortisone Sod Succinate [Solu-CORTEF] 100 mg IVPUSH ONETIME ONE Pantoprazole [ProTONIX] 40 mg PO DAILY 06/29/16 05:00 BASIC METABOLIC PANEL,BMP [CHEM] Timed CBC W/O DIFF,HEMOGRAM [HEME] Timed (1) 06/29/16 09:00 Flu Vaccine (36Mos+)/PF [Fluzone/Fluarix Vaccine] 60 mcg IM .ONCE ONE - Plan Plan:: ASSESSMENT / PLAN Left-sided pyelonephritis with septic shock - patient had refractory hypotension despite aggressive fluid challenges. She's now requiring moderately large doses of norepinephrine. Heart rate has stabilized. Urine output has been adequate. Peripheral pulses are strong. Tolerating antibiotics and cultures are pending. lactic acid level has normalized. -Continue ciprofloxacin and Pip/Tazo -Continue norepinephrine, wean as able -Additional fluid bolus and second dose of hydrocortisone this morning -Continue maintenance IV fluids -Followup cultures -Continue Rincon catheter for strict intake and output monitoring Diabetes mellitus type 2 - hemoglobin A1c elevated at greater than 12 suggesting suboptimal control for some time. Family does report symptoms of polyuria and polydipsia. Thyroid is normal. -Sliding-scale insulin for now, consider long-acting dose depending on daily supplement needs -Hold on metformin given suboptimal creatinine clearance Maintenance issues -Nutrition: NPO -Rincon catheter -DVT: SCD -PPI; Protonix 40 mg IV -referral to Rat Trapper, PT, OT Admission status: Admit to ICU Admission justification. This patient will be admitted for inpatient services and is medically appropriate meeting medical necessity for inpatient admission as outlined in my documentation. I reasonably expect the patient will require inpatient services that span. Time over 2 midnights. I reasonably expect this patient to be discharged or transferred within 96 hours after admission to the critical access hospital. Disposition; home with family in a few days Family Supervisor Volunteer Services: Milla [phone] Chalino Forbes MD
[2016-06-28] MEDS ORDERED: Hydrocortisone Sodium Succinate 100 MG/2 ML SDV IVPUSH ONE (09:30)
[2016-06-28] MEDS: Pantoprazole 40 MG Tab.CR PO SCH (09:30)
[2016-06-28] MEDS: Magnesium Sulfate/Water 2 GM in Premix Bag 1 BAG IV SCH ×3 (11:58→23:47)
[2016-06-29] MEDS: Norepinephrine 4 MG in Dextrose 5% in Water 246 ML IV SCH ×8 (02:14→23:42)
[2016-06-29] MEDS: Morphine 2 MG/ML Syringe IVPUSH PRN ×5 (02:36→23:49)
[2016-06-29] MEDS: NS + KCl 20mEq/L 1,000 ML IV SCH ×2 (05:40→15:28)
[2016-06-29] MEDS: Piperacillin/Tazobactam/Dext 3.375 GM in Premix Bag 1 BAG IV SCH ×4 (05:40→23:41)
[2016-06-29] MEDS: Magnesium Sulfate/Water 2 GM in Premix Bag 1 BAG IV SCH (05:41)
[2016-06-29] MEDS: Pantoprazole 40 MG Tab.CR PO SCH (07:55)
[2016-06-29] MEDS: Insulin Aspart 100 Units/ML 3 ML Pen SUBCUT SCH ×4 (08:07→21:03)
[2016-06-29] MEDS: Insulin Detemir 100 Units/ML 3 ML Pen SUBCUT SCH ×2 (08:45→21:03)
[2016-06-29] MEDS: Ciprofloxacin in D5W 400 MG in Premix Bag 1 BAG IV SCH ×4 (08:46→20:13)
--- NOTE | 2016-06-29 09:03 | PCM.PN ---
- General Info Date of Service: 06/29/16 Functional Status: Reports: pain controlled, urinating - Review of Systems General: Reports: Fever Pulmonary: Denies: shortness of breath Gastrointestinal: Reports: Abdominal pain, Constipation Systems Review Comment:: No acute events overnight. Blood pressures have been stable and we have been able to titrate down the norepinephrine infusion. Temperature curve continues to improve. Urine culture and 2 blood cultures are growing gram-negative rods with identification pending. She reports 2 different abdominal pains, one in the left flank and one in the left lower cord current. She feels like she has to go to the bathroom but has not been able to pass much stool. Appetite and energy have both been improving some. - Patient Data Vitals - most recent: Last Vital Signs Temp 37.4 C 06/29/16 07:52 Pulse 81 06/29/16 07:52 Resp 24 H 06/29/16 07:52 BP 118/61 06/29/16 07:55 Pulse Ox 92 L 06/29/16 07:52 Weight - most recent: 52.3 kg I&O - last 24 hours: Intake & Output 06/28/16 06/29/16 06/29/16 22:59 06:59 14:59 Intake Total 1947 2646 200 Output Total 1085 850 Balance 862 1796 200 Lab Results last 24 hrs: Laboratory Results - last 24 hr 06/29/16 06/29/16 Range/Units 05:31 05:31 WBC 28.1 H (4.5-11.0) K/uL RBC 3.69 (3.30-5.50) M/uL Hgb 11.0 L (12.0-15.0) g/dL Hct 32.1 L (36.0-48.0) % MCV 87 (80-98) fL MCH 30 (27-31) pg MCHC 34 (32-36) % Plt Count 165 (150-400) K/uL Sodium 139 L (140-148) mmol/L Potassium 4.5 (3.6-5.2) mmol/L Chloride 110 H (100-108) mmol/L Carbon Dioxide 19 L (21-32) mmol/L Anion Gap 14.5 H (5.0-14.0) mmol/L BUN 12 (7-18) mg/dL Creatinine 0.9 (0.6-1.0) mg/dL Est Cr Clr Drug Dosing 50.13 mL/min Estimated GFR (MDRD) > 60 (>60) Glucose 295 H (74-106) mg/dL Calcium 7.1 L (8.5-10.1) mg/dL Med Orders - Current: Current Medications Acetaminophen (Tylenol) 650 mg PO Q4H PRN PRN Reason: Pain/Fever Last Admin: 06/28/16 10:15 Dose: 650 mg Albuterol (Proventil Neb Soln) 2.5 mg NEB Q4H PRN PRN Reason: Shortness Of Breath/wheezing Docusate Sodium (Colace) 100 mg PO BID PRN PRN Reason: Constipation Last Admin: 06/29/16 07:59 Dose: 100 mg Hydromorphone HCl (Dilaudid) 0.5 - 1 mg IVPUSH Q2H PRN PRN Reason: Abdominal Pain Last Admin: 06/28/16 16:14 Dose: 0.5 mg Potassium Chloride/Sodium Chloride (Normal Saline With 20 Meq Kcl) 1,000 mls @ 150 mls/hr IV ASDIRECTED [facility] Last Admin: 06/29/16 05:40 Dose: 150 mls/hr Piperacillin/Tazobactam/ (Dextrose 3.375 gm/ Premix) 50 mls @ 100 mls/hr IV Q6H [facility] Last Admin: 06/29/16 05:40 Dose: 100 mls/hr Norepinephrine Bitartrate 4 mg (/ Dextrose/Water) 250 mls @ 7.5 mls/hr IV TITRATE [facility]; 2 MCG/MIN PRN Reason: Protocol Last Titration: 06/29/16 08:56 Dose: 10 mcg/min, 37.5 mls/hr Ciprofloxacin/Dextrose 400 mg/ (Premix) 200 mls @ 200 mls/hr IV Q12H [facility] Last Admin: 06/29/16 08:46 Dose: 200 mls/hr Influenza Virus Vaccine (Fluzone/Fluarix Vaccine) 60 mcg IM .ONCE ONE Stop: 07/01/16 10:01 Insulin Aspart (Novolog) 0 unit SUBCUT ASDIRECTED [facility] PRN Reason: Protocol Last Admin: 06/29/16 08:07 Dose: 12 units Insulin Detemir (Levemir) 20 unit SUBCUT BID [facility] Last Admin: 06/29/16 08:45 Dose: 20 unit Ketorolac Tromethamine (Toradol) 15 mg IVPUSH Q6H PRN PRN Reason: Pain/Fever Stop: 07/03/16 08:18 Last Admin: 06/29/16 08:51 Dose: 15 mg Lorazepam (Ativan) 1 mg IV Q6H PRN PRN Reason: Nausea/Vomiting Magnesium Hydroxide (Milk Of Magnesia) 30 ml PO Q12H PRN PRN Reason: Constipation Last Admin: 06/29/16 08:46 Dose: 30 ml Morphine Sulfate (Morphine) 2 mg IVPUSH Q2H PRN PRN Reason: Pain (severe 7-10) Last Admin: 06/29/16 02:36 Dose: 2 mg Ondansetron HCl (Zofran) 4 mg IVPUSH Q4H PRN PRN Reason: Nausea/Vomiting Pantoprazole Sodium (Protonix) 40 mg PO DAILY@0730 [facility] Last Admin: 06/29/16 07:55 Dose: 40 mg Discontinued Medications Ascorbic Acid (Vitamin C) 500 mg PO ONETIME ONE Stop: 06/27/16 23:29 Last Admin: 06/28/16 01:12 Dose: Not Given Diphtheria/Tetanus/Acell Pertussis (Adacel) 0.5 ml IM .ONCE ONE Stop: 06/27/16 21:29 Last Admin: 06/28/16 01:29 Dose: 0.5 ml Hydrocortisone Sodium Succinate (Solu-Cortef) 100 mg IVPUSH ONETIME ONE Stop: 06/27/16 23:22 Last Admin: 06/28/16 00:32 Dose: 100 mg Hydrocortisone Sodium Succinate (Solu-Cortef) 100 mg IVPUSH ONETIME ONE Stop: 06/28/16 09:31 Last Admin: 06/28/16 09:38 Dose: 100 mg Hydromorphone HCl (Dilaudid) 0.5 mg IVPUSH ONETIME ONE Stop: 06/27/16 18:22 Last Admin: 06/27/16 18:45 Dose: 0.5 mg Hydromorphone HCl (Dilaudid) 1 mg IVPUSH Q2H PRN PRN Reason: Abdominal Pain Last Admin: 06/27/16 23:45 Dose: 1 mg Sodium Chloride (Normal Saline) 1,000 mls @ 999 mls/hr IV ASDIRECTED [facility] Last Admin: 06/27/16 18:41 Dose: 500 mls/hr Sodium Chloride (Normal Saline) 70 mls @ 3 mls/sec IV ONETIME ONE Stop: 06/27/16 19:23 Last Admin: 06/27/16 19:45 Dose: 3 mls/sec Ciprofloxacin/Dextrose 400 mg/ (Premix) 200 mls @ 200 mls/hr IV ONETIME ONE Stop: 06/27/16 20:57 Last Admin: 06/27/16 20:25 Dose: 200 mls/hr Metronidazole 500 mg/ Premix 100 mls @ 100 mls/hr IV ONETIME ONE Stop: 06/27/16 20:57 Last Admin: 06/27/16 22:05 Dose: Not Given Acetaminophen 1,000 mg/ Premix 100 mls @ 400 mls/hr IV NOW ONE Stop: 06/27/16 20:48 Last Admin: 06/27/16 21:04 Dose: 400 mls/hr Sodium Chloride (Normal Saline) 1,000 mls @ 500 mls/hr IV ASDIRECTED [facility] Last Admin: 06/27/16 22:09 Dose: 500 mls/hr Sodium Chloride (Normal Saline) 1,000 mls @ 999 mls/hr IV .BOLUS ONE Stop: 06/28/16 00:21 Last Admin: 06/27/16 23:48 Dose: 999 mls/hr Piperacillin Sod/Tazobactam (Sod 3.375 gm/ Sodium Chloride) 50 mls @ 100 mls/ hr IV Q6H [facility] Sodium Chloride (Normal Saline) Confirm Administered Dose 100 mls @ as directed .ROUTE .STK-MED ONE Stop: 06/28/16 00:28 Last Admin: 06/28/16 00:40 Dose: Not Given Sodium Chloride (Normal Saline) 250 mls @ 999 mls/hr IV ASDIRECTED [facility] Stop: 06/28/16 02:46 Last Admin: 06/28/16 02:57 Dose: 999 mls/hr Acetaminophen 1,000 mg/ Premix 100 mls @ 400 mls/hr IV Q6H PRN PRN Reason: Fever Stop: 06/29/16 05:03 Last Admin: 06/28/16 05:19 Dose: 400 mls/hr Sodium Chloride (Normal Saline) Confirm Administered Dose 100 mls @ as directed .ROUTE .STK-MED ONE Stop: 06/28/16 05:25 Last Admin: 06/28/16 05:32 Dose: Not Given Sodium Chloride (Normal Saline) 500 mls @ 999 mls/hr IV ASDIRECTED [facility] Stop: 06/28/16 09:31 Last Admin: 06/28/16 09:21 Dose: 999 mls/hr Magnesium Sulfate 2 gm/ Premix 50 mls @ 25 mls/hr IV Q6H [facility] Stop: 06/29/16 07:59 Last Admin: 06/29/16 05:41 Dose: 25 mls/hr Insulin Aspart (Novolog) 0 unit SUBCUT ASDIRECTED [facility] PRN Reason: Protocol Last Admin: 06/28/16 07:50 Dose: 5 units Iopamidol (Isovue-300 (61%)) 78 ml IV . DIRECTED PRN PRN Reason: RADIOLOGY EXAM Stop: 06/27/16 19:23 Last Admin: 06/27/16 19:45 Dose: 100 ml Ondansetron HCl (Zofran) 4 mg IVPUSH ONETIME ONE Stop: 06/27/16 18:23 Last Admin: 06/27/16 18:42 Dose: 4 mg Pantoprazole Sodium (Protonix Iv) 40 mg IV Q12H [facility] Last Admin: 06/28/16 00:18 Dose: 40 mg Potassium Chloride (Klor-Con M20) 40 meq PO ONETIME ONE Stop: 06/28/16 09:01 Last Admin: 06/28/16 09:27 Dose: 40 meq Sodium Chloride (Normal Saline) 10 ml FLUSH ONETIME ONE Stop: 06/27/16 19:23 Last Admin: 06/28/16 00:04 Dose: Not Given - Exam Quality Assessment: urine catheter. No: supplemental oxygen General: alert, oriented, cooperative, no acute distress Neck: supple Lungs: Clear to auscultation, Normal respiratory effort Cardiovascular: Regular Rate, Regular Rhythm. No: Murmurs Abdomen: bowel sounds present, soft, tenderness (mild diffuse, moderate left flank), distension (mild) Extremities: no edema, no cyanosis Skin: warm, dry Psy/Mental Status: alert, normal affect - Problem List Review Problem List Initiated/Reviewed/Updated: Yes - My Orders Last 24 Hours: My Active Orders 06/28/16 08:11 Patient Status [ADT] Routine 06/28/16 08:17 Ketorolac [Toradol] 15 mg IVPUSH Q6H PRN 06/28/16 08:18 Acetaminophen [Tylenol] 650 mg PO Q4H PRN 06/28/16 09:24 Notify Provider [RC] PRN 06/28/16 09:30 Insulin Aspart [NovoLOG] See Protocol SUBCUT ASDIRECTED Pantoprazole [ProTONIX] 40 mg PO DAILY@0730 06/28/16 Lunch Regular Diet [DIET] 06/29/16 08:30 Ciprofloxacin in D5W [Cipro in D5W 400 MG/200 ML] 400 mg Premix Bag 1 bag IV Q12H 06/29/16 09:00 Insulin Detemir [Levemir] 20 unit SUBCUT BID 06/29/16 09:05 NS + KCl 20mEq/L [Normal Saline with 20 mEq KCl] 1,000 ml IV ASDIRECTED 06/30/16 05:00 CBC W/O DIFF,HEMOGRAM [HEME] Timed (1) COMPREHENSIVE METABOLIC PN,CMP [CHEM] Timed 07/01/16 10:00 Flu Vaccine 2015-(36Mos+)/PF [Fluzone/Fluarix Vaccine] 60 mcg IM .ONCE ONE - Plan Plan:: ASSESSMENT / PLAN Left-sided pyelonephritis with septic shock - sepsis seems to be improving with decreasing norepinephrine requirements. I think that we are reaching the limits of volume status and need to back off on IV fluids. She may need some diuresis once her blood pressure improves a little bit further. cultures are pending but urine culture and 2 blood cultures are growing gram-negative rods. -Continue ciprofloxacin and Pip/Tazo -Continue norepinephrine, wean as able -Decrease IV fluids hopefully this can be removed tomorrow -Followup cultures -Continue Rincon catheter for strict intake and output monitoring, Diabetes mellitus type 2 - hemoglobin A1c elevated at greater than 12 suggesting suboptimal control for some time. sugars remain elevated and patient will obviously need long-acting insulin at least for a while after hospital discharge. -Start long-acting insulin twice daily -Sliding-scale insulin -start metformin once sepsis has resolved -She will need extensive diabetes education with an diplomatic interpreter prior to discharge Maintenance issues -Nutrition: NPO -Rincon catheter -DVT: SCD -PPI; Protonix 40 mg IV -referral to Die Cast Supervisor -PT, OT starting on Friday Disposition; home with family in a few days Family Preschool Associate Teacher: Milla [phone] Chalino Forbes MD
[2016-06-30] MEDS: Morphine 2 MG/ML Syringe IVPUSH PRN (02:50)
[2016-06-30] MEDS: NS + KCl 20mEq/L 1,000 ML IV SCH ×2 (03:20→14:55)
[2016-06-30] MEDS: Piperacillin/Tazobactam/Dext 3.375 GM in Premix Bag 1 BAG IV SCH (05:52)
[2016-06-30] MEDS: Pantoprazole 40 MG Tab.CR PO SCH (07:35)
[2016-06-30] MEDS: Ciprofloxacin in D5W 400 MG in Premix Bag 1 BAG IV SCH ×4 (08:05→20:25)
[2016-06-30] MEDS: Insulin Detemir 100 Units/ML 3 ML Pen SUBCUT SCH ×2 (09:03→20:40)
[2016-06-30] MEDS: Norepinephrine 4 MG in Dextrose 5% in Water 246 ML IV SCH ×2 (09:05)
--- NOTE | 2016-06-30 09:15 | PCM.PN ---
- General Info Date of Service: 06/30/16 Functional Status: Reports: pain controlled, tolerating diet, ambulating - Review of Systems General: Reports: Weakness. Denies: Fever Pulmonary: Denies: shortness of breath Cardiovascular: Reports: Edema (arms) Gastrointestinal: Reports: Abdominal pain Systems Review Comment:: No acute events overnight. Bowels have been moving. Abdomen feels a little more tender in a little more distended today but her left flank pain has improved. Fever curve has continued to improve. Urine output has been adequate. Urine culture and aerobic blood cultures are growing Escherichia coli. Appetite has been okay. She has been able to walk in the [place] some. - Patient Data Vitals - most recent: Last Vital Signs Temp 37.2 C 06/30/16 09:00 Pulse 79 06/30/16 09:00 Resp 17 06/30/16 09:00 BP 92/43 L 06/30/16 09:05 Pulse Ox 96 06/30/16 09:00 Weight - most recent: 52.3 kg I&O - last 24 hours: Intake & Output 06/29/16 06/30/16 06/30/16 22:59 06:59 14:59 Intake Total 1832 1732 200 Output Total 270 485 Balance 1562 1247 200 Lab Results last 24 hrs: Laboratory Results - last 24 hr 06/30/16 06/30/16 Range/Units 05:41 05:41 WBC 26.7 H (4.5-11.0) K/uL RBC 3.31 (3.30-5.50) M/uL Hgb 9.7 L (12.0-15.0) g/dL Hct 29.0 L (36.0-48.0) % MCV 88 (80-98) fL MCH 29 (27-31) pg MCHC 33 (32-36) % Plt Count 164 (150-400) K/uL Sodium 136 L (140-148) mmol/L Potassium 4.7 (3.6-5.2) mmol/L Chloride 107 (100-108) mmol/L Carbon Dioxide 20 L (21-32) mmol/L Anion Gap 13.7 (5.0-14.0) mmol/L BUN 9 (7-18) mg/dL Creatinine 0.7 (0.6-1.0) mg/dL Est Cr Clr Drug Dosing 64.46 mL/min Estimated GFR (MDRD) > 60 (>60) Glucose 133 H (74-106) mg/dL Calcium 7.3 L (8.5-10.1) mg/dL Total Bilirubin 0.6 (0.2-1.0) mg/dL AST 15 (15-37) U/L ALT 26 (12-78) U/L Alkaline Phosphatase 129 H (46-116) U/L Total Protein 5.8 L (6.4-8.2) g/dL Albumin 2.0 L (3.4-5.0) g/dL Globulin 3.8 H (2.3-3.5) g/dL Albumin/Globulin Ratio 0.5 L (1.2-2.2) Med Orders - Current: Current Medications Acetaminophen (Tylenol) 650 mg PO Q4H PRN PRN Reason: Pain/Fever Last Admin: 06/28/16 10:15 Dose: 650 mg Albuterol (Proventil Neb Soln) 2.5 mg NEB Q4H PRN PRN Reason: Shortness Of Breath/wheezing Docusate Sodium (Colace) 100 mg PO BID PRN PRN Reason: Constipation Last Admin: 06/29/16 07:59 Dose: 100 mg Hydromorphone HCl (Dilaudid) 0.5 - 1 mg IVPUSH Q2H PRN PRN Reason: Abdominal Pain Last Admin: 06/28/16 16:14 Dose: 0.5 mg Norepinephrine Bitartrate 4 mg (/ Dextrose/Water) 250 mls @ 7.5 mls/hr IV TITRATE OPAL; 2 MCG/MIN PRN Reason: Protocol Last Admin: 06/30/16 09:05 Dose: 4 mcg/min, 15 mls/hr Ciprofloxacin/Dextrose 400 mg/ (Premix) 200 mls @ 200 mls/hr IV Q12H [facility] Last Admin: 06/30/16 08:05 Dose: 200 mls/hr Potassium Chloride/Sodium Chloride (Normal Saline With 20 Meq Kcl) 1,000 mls @ 100 mls/hr IV ASDIRECTED OPAL Last Admin: 06/30/16 03:20 Dose: 100 mls/hr Influenza Virus Vaccine (Fluzone/Fluarix Vaccine) 60 mcg IM .ONCE ONE Stop: 07/01/16 10:01 Insulin Aspart (Novolog) 0 unit SUBCUT ASDIRECTED [facility] PRN Reason: Protocol Last Admin: 06/29/16 21:03 Dose: 9 units Insulin Detemir (Levemir) 20 unit SUBCUT BID [facility] Last Admin: 06/30/16 09:03 Dose: 20 unit Ketorolac Tromethamine (Toradol) 15 mg IVPUSH Q6H PRN PRN Reason: Pain/Fever Stop: 07/03/16 08:18 Last Admin: 06/29/16 08:51 Dose: 15 mg Lorazepam (Ativan) 1 mg IV Q6H PRN PRN Reason: Nausea/Vomiting Magnesium Hydroxide (Milk Of Magnesia) 30 ml PO Q12H PRN PRN Reason: Constipation Last Admin: 06/29/16 08:46 Dose: 30 ml Morphine Sulfate (Morphine) 2 mg IVPUSH Q2H PRN PRN Reason: Pain (severe 7-10) Last Admin: 06/30/16 02:50 Dose: 2 mg Ondansetron HCl (Zofran) 4 mg IVPUSH Q4H PRN PRN Reason: Nausea/Vomiting Pantoprazole Sodium (Protonix) 40 mg PO DAILY@0730 [facility] Last Admin: 06/30/16 07:35 Dose: 40 mg Discontinued Medications Ascorbic Acid (Vitamin C) 500 mg PO ONETIME ONE Stop: 06/27/16 23:29 Last Admin: 06/28/16 01:12 Dose: Not Given Diphtheria/Tetanus/Acell Pertussis (Adacel) 0.5 ml IM .ONCE ONE Stop: 06/27/16 21:29 Last Admin: 06/28/16 01:29 Dose: 0.5 ml Hydrocortisone Sodium Succinate (Solu-Cortef) 100 mg IVPUSH ONETIME ONE Stop: 06/27/16 23:22 Last Admin: 06/28/16 00:32 Dose: 100 mg Hydrocortisone Sodium Succinate (Solu-Cortef) 100 mg IVPUSH ONETIME ONE Stop: 06/28/16 09:31 Last Admin: 06/28/16 09:38 Dose: 100 mg Hydromorphone HCl (Dilaudid) 0.5 mg IVPUSH ONETIME ONE Stop: 06/27/16 18:22 Last Admin: 06/27/16 18:45 Dose: 0.5 mg Hydromorphone HCl (Dilaudid) 1 mg IVPUSH Q2H PRN PRN Reason: Abdominal Pain Last Admin: 06/27/16 23:45 Dose: 1 mg Sodium Chloride (Normal Saline) 1,000 mls @ 999 mls/hr IV ASDIRECTED [facility] Last Admin: 06/27/16 18:41 Dose: 500 mls/hr Sodium Chloride (Normal Saline) 70 mls @ 3 mls/sec IV ONETIME ONE Stop: 06/27/16 19:23 Last Admin: 06/27/16 19:45 Dose: 3 mls/sec Potassium Chloride/Sodium Chloride (Normal Saline With 20 Meq Kcl) 1,000 mls @ 150 mls/hr IV ASDIRECTED [facility] Last Admin: 06/29/16 05:40 Dose: 150 mls/hr Ciprofloxacin/Dextrose 400 mg/ (Premix) 200 mls @ 200 mls/hr IV ONETIME ONE Stop: 06/27/16 20:57 Last Admin: 06/27/16 20:25 Dose: 200 mls/hr Metronidazole 500 mg/ Premix 100 mls @ 100 mls/hr IV ONETIME ONE Stop: 06/27/16 20:57 Last Admin: 06/27/16 22:05 Dose: Not Given Acetaminophen 1,000 mg/ Premix 100 mls @ 400 mls/hr IV NOW ONE Stop: 06/27/16 20:48 Last Admin: 06/27/16 21:04 Dose: 400 mls/hr Sodium Chloride (Normal Saline) 1,000 mls @ 500 mls/hr IV ASDIRECTED [facility] Last Admin: 06/27/16 22:09 Dose: 500 mls/hr Sodium Chloride (Normal Saline) 1,000 mls @ 999 mls/hr IV .BOLUS ONE Stop: 06/28/16 00:21 Last Admin: 06/27/16 23:48 Dose: 999 mls/hr Piperacillin Sod/Tazobactam (Sod 3.375 gm/ Sodium Chloride) 50 mls @ 100 mls/ hr IV Q6H [facility] Piperacillin/Tazobactam/ (Dextrose 3.375 gm/ Premix) 50 mls @ 100 mls/hr IV Q6H [facility] Last Admin: 06/30/16 05:52 Dose: 100 mls/hr Sodium Chloride (Normal Saline) Confirm Administered Dose 100 mls @ as directed .ROUTE .STK-MED ONE Stop: 06/28/16 00:28 Last Admin: 06/28/16 00:40 Dose: Not Given Sodium Chloride (Normal Saline) 250 mls @ 999 mls/hr IV ASDIRECTED [facility] Stop: 06/28/16 02:46 Last Admin: 06/28/16 02:57 Dose: 999 mls/hr Acetaminophen 1,000 mg/ Premix 100 mls @ 400 mls/hr IV Q6H PRN PRN Reason: Fever Stop: 06/29/16 05:03 Last Admin: 06/28/16 05:19 Dose: 400 mls/hr Sodium Chloride (Normal Saline) Confirm Administered Dose 100 mls @ as directed .ROUTE .STK-MED ONE Stop: 06/28/16 05:25 Last Admin: 06/28/16 05:32 Dose: Not Given Sodium Chloride (Normal Saline) 500 mls @ 999 mls/hr IV ASDIRECTED [facility] Stop: 06/28/16 09:31 Last Admin: 06/28/16 09:21 Dose: 999 mls/hr Magnesium Sulfate 2 gm/ Premix 50 mls @ 25 mls/hr IV Q6H [facility] Stop: 06/29/16 07:59 Last Admin: 06/29/16 05:41 Dose: 25 mls/hr Insulin Aspart (Novolog) 0 unit SUBCUT ASDIRECTED [facility] PRN Reason: Protocol Last Admin: 06/28/16 07:50 Dose: 5 units Iopamidol (Isovue-300 (61%)) 78 ml IV . DIRECTED PRN PRN Reason: RADIOLOGY EXAM Stop: 06/27/16 19:23 Last Admin: 06/27/16 19:45 Dose: 100 ml Ondansetron HCl (Zofran) 4 mg IVPUSH ONETIME ONE Stop: 06/27/16 18:23 Last Admin: 06/27/16 18:42 Dose: 4 mg Pantoprazole Sodium (Protonix Iv) 40 mg IV Q12H [facility] Last Admin: 06/28/16 00:18 Dose: 40 mg Potassium Chloride (Klor-Con M20) 40 meq PO ONETIME ONE Stop: 06/28/16 09:01 Last Admin: 06/28/16 09:27 Dose: 40 meq Sodium Chloride (Normal Saline) 10 ml FLUSH ONETIME ONE Stop: 06/27/16 19:23 Last Admin: 06/28/16 00:04 Dose: Not Given - Exam Quality Assessment: urine catheter. No: supplemental oxygen General: alert, cooperative, no acute distress Neck: supple Lungs: Clear to auscultation, Normal respiratory effort, Rales (rare scattered anterior) Cardiovascular: Regular Rate, Regular Rhythm, No Murmurs Abdomen: soft, tenderness (mild to moderate left sided pain), distension, abnormal bowel sounds (hypoactive). No: guarding Extremities: no edema (of legs), no cyanosis Skin: warm, dry Psy/Mental Status: alert, normal affect - Problem List Review Problem List Initiated/Reviewed/Updated: Yes - My Orders Last 24 Hours: My Active Orders 06/29/16 08:30 Ciprofloxacin in D5W [Cipro in D5W 400 MG/200 ML] 400 mg Premix Bag 1 bag IV Q12H 06/29/16 09:00 Insulin Detemir [Levemir] 20 unit SUBCUT BID 06/29/16 09:05 NS + KCl 20mEq/L [Normal Saline with 20 mEq KCl] 1,000 ml IV ASDIRECTED 06/30/16 08:35 Abdomen 2V AP Flat Upright [CR] Routine Abdomen Pelvis wo Cont [CT] Routine 06/30/16 Lunch Consistent Carbohydrate Diet [DIET] 07/01/16 05:00 BASIC METABOLIC PANEL,BMP [CHEM] Timed CBC W/O DIFF,HEMOGRAM [HEME] Timed (1) 07/01/16 10:00 Flu Vaccine 2015-(36Mos+)/PF [Fluzone/Fluarix 2015- Vaccine] 60 mcg IM .ONCE ONE - Plan Plan:: ASSESSMENT / PLAN Left-sided pyelonephritis with septic shock - sepsis seems to be improving with decreasing norepinephrine requirements but we have not yet been able to wean off and norepinephrine. Culture growing pansensitive Escherichia coli. White blood cell count still elevated but is a little better today. Repeat CT scan this morning shows resolution of the hydronephrosis. -Continue ciprofloxacin and discontinue Pip/Tazo -Continue norepinephrine, wean as able -Decrease IV fluids -Followup cultures -Continue Rincon catheter for strict intake and output monitoring Diabetes mellitus type 2 - hemoglobin A1c elevated at greater than 12 suggesting suboptimal control for some time. sugars have improved with the addition of long-acting insulin. -Continue long-acting insulin twice daily -Sliding-scale insulin -start metformin tomorrow -She will need extensive diabetes education with an adjustment supervisor prior to discharge Maintenance issues -Nutrition: Diabetic diet -Rincon catheter -DVT: SCD -GI; PPI -referral to Phy Therapist -PT starting on Friday Disposition; home with family in 2-3 days Family [employer]: [place] [phone] Chalino Forbes MD
[2016-06-30] MEDS: Insulin Aspart 100 Units/ML 3 ML Pen SUBCUT SCH (11:20)
[2016-06-30] MEDS: oxyCODONE 5 MG Tab PO PRN ×2 (14:42→23:53)
[2016-07-01] MEDS: NS + KCl 20mEq/L 1,000 ML IV SCH (01:45)
[2016-07-01] MEDS: Morphine 2 MG/ML Syringe IVPUSH PRN (02:03)
[2016-07-01] MEDS: Pantoprazole 40 MG Tab.CR PO SCH (08:07)
[2016-07-01] MEDS: Ciprofloxacin in D5W 400 MG in Premix Bag 1 BAG IV SCH ×4 (08:08→21:21)
[2016-07-01] MEDS ORDERED: Insulin Detemir 100 Units/ML 3 ML Pen SUBCUT SCH ×2 (08:29→21:00)
[2016-07-01] MEDS: oxyCODONE 5 MG Tab PO PRN ×2 (08:34→16:56)
[2016-07-01] MEDS ORDERED: Furosemide 20 MG/2 ML VIAL IVPUSH SCH (09:00)
[2016-07-01] MEDS ORDERED: Furosemide 40 MG/4 ML VIAL IVPUSH SCH (09:00)
[2016-07-01] MEDS ORDERED: Flu Vaccine 2016-17(36Mos+)/PF 60 MCG/0.5 ML Syringe IM ONE (10:00)
--- NOTE | 2016-07-01 10:01 | PCM.PN ---
- General Info Date of Service: 07/01/16 Functional Status: Reports: pain controlled, tolerating diet, ambulating - Review of Systems General: Reports: Weakness. Denies: Fever, Chills Pulmonary: Reports: no symptoms Cardiovascular: Reports: No Symptoms Gastrointestinal: Reports: Abdominal pain. Denies: Nausea, Vomiting Genitourinary: Reports: no symptoms Systems Review Comment:: This patient has improved significantly since admission, initially have pyelonephritis with severe sepsis requiring IV norepinephrine. She's now been off of the norepinephrine 24 hours and has remained hemodynamically stable. Vital signs have been good and she has remained afebrile. - Patient Data Vitals - most recent: Last Vital Signs Temp 98.6 F 07/01/16 08:00 Pulse 75 06/30/16 17:51 Resp 20 07/01/16 09:00 BP 155/90 H 07/01/16 09:00 Pulse Ox 98 07/01/16 09:00 Weight - most recent: 115 lb 4.828 oz I&O - last 24 hours: Intake & Output 06/30/16 07/01/16 07/01/16 22:59 06:59 14:59 Intake Total 1206 1400 200 Balance 1206 1400 200 Lab Results last 24 hrs: Laboratory Results - last 24 hr 07/01/16 07/01/16 Range/Units 05:45 05:45 WBC 14.6 H (4.5-11.0) K/uL RBC 3.31 (3.30-5.50) M/uL Hgb 9.7 L (12.0-15.0) g/dL Hct 29.1 L (36.0-48.0) % MCV 88 (80-98) fL MCH 29 (27-31) pg MCHC 33 (32-36) % Plt Count 171 (150-400) K/uL Sodium 137 L (140-148) mmol/L Potassium 4.4 (3.6-5.2) mmol/L Chloride 106 (100-108) mmol/L Carbon Dioxide 22 (21-32) mmol/L Anion Gap 13.4 (5.0-14.0) mmol/L BUN 7 (7-18) mg/dL Creatinine 0.6 (0.6-1.0) mg/dL Est Cr Clr Drug Dosing 75.20 mL/min Estimated GFR (MDRD) > 60 (>60) Glucose 76 (74-106) mg/dL Calcium 7.5 L (8.5-10.1) mg/dL Med Orders - Current: Current Medications Acetaminophen (Tylenol) 650 mg PO Q4H PRN PRN Reason: Pain/Fever Last Admin: 06/28/16 10:15 Dose: 650 mg Albuterol (Proventil Neb Soln) 2.5 mg NEB Q4H PRN PRN Reason: Shortness Of Breath/wheezing Docusate Sodium (Colace) 100 mg PO BID PRN PRN Reason: Constipation Last Admin: 06/29/16 07:59 Dose: 100 mg Ciprofloxacin/Dextrose 400 mg/ (Premix) 200 mls @ 200 mls/hr IV Q12H [facility] Last Admin: 07/01/16 08:08 Dose: 200 mls/hr Influenza Virus Vaccine (Fluzone/Fluarix Vaccine) 60 mcg IM .ONCE ONE Stop: 07/01/16 10:01 Insulin Aspart (Novolog) 0 unit SUBCUT ASDIRECTED [facility] PRN Reason: Protocol Last Admin: 06/30/16 11:20 Dose: 3 units Insulin Detemir (Levemir) 16 unit SUBCUT BID [facility] Last Admin: 07/01/16 08:40 Dose: 16 units Magnesium Hydroxide (Milk Of Magnesia) 30 ml PO Q12H PRN PRN Reason: Constipation Last Admin: 06/29/16 08:46 Dose: 30 ml Ondansetron HCl (Zofran) 4 mg IVPUSH Q4H PRN PRN Reason: Nausea/Vomiting Oxycodone HCl (Oxycodone) 5 - 10 mg PO Q4H PRN PRN Reason: Pain Last Admin: 07/01/16 08:34 Dose: 10 mg Pantoprazole Sodium (Protonix) 40 mg PO DAILY@0730 [facility] Last Admin: 07/01/16 08:07 Dose: 40 mg Discontinued Medications Ascorbic Acid (Vitamin C) 500 mg PO ONETIME ONE Stop: 06/27/16 23:29 Last Admin: 06/28/16 01:12 Dose: Not Given Diphtheria/Tetanus/Acell Pertussis (Adacel) 0.5 ml IM .ONCE ONE Stop: 06/27/16 21:29 Last Admin: 06/28/16 01:29 Dose: 0.5 ml Furosemide (Lasix) 20 mg IVPUSH DAILY [facility] Stop: 07/01/16 09:01 Last Admin: 07/01/16 09:26 Dose: 20 mg Hydrocortisone Sodium Succinate (Solu-Cortef) 100 mg IVPUSH ONETIME ONE Stop: 06/27/16 23:22 Last Admin: 06/28/16 00:32 Dose: 100 mg Hydrocortisone Sodium Succinate (Solu-Cortef) 100 mg IVPUSH ONETIME ONE Stop: 06/28/16 09:31 Last Admin: 06/28/16 09:38 Dose: 100 mg Hydromorphone HCl (Dilaudid) 0.5 mg IVPUSH ONETIME ONE Stop: 06/27/16 18:22 Last Admin: 06/27/16 18:45 Dose: 0.5 mg Hydromorphone HCl (Dilaudid) 1 mg IVPUSH Q2H PRN PRN Reason: Abdominal Pain Last Admin: 06/27/16 23:45 Dose: 1 mg Hydromorphone HCl (Dilaudid) 0.5 - 1 mg IVPUSH Q2H PRN PRN Reason: Abdominal Pain Last Admin: 06/28/16 16:14 Dose: 0.5 mg Sodium Chloride (Normal Saline) 1,000 mls @ [facility] Admin: 06/27/16 18:41 Dose: 500 mls/hr Sodium Chloride (Normal Saline) 70 mls @ 3 mls/sec IV ONETIME ONE Stop: 06/27/16 19:23 Last Admin: 06/27/16 19:45 Dose: 3 mls/sec Potassium Chloride/Sodium Chloride (Normal Saline With 20 Meq Kcl) 1,000 mls @ 150 [facility] Last Admin: 06/29/16 05:40 Dose: 150 mls/hr Ciprofloxacin/Dextrose 400 mg/ (Premix) 200 mls @ 200 mls/hr IV ONETIME ONE Stop: 06/27/16 20:57 Last Admin: 06/27/16 20:25 Dose: 200 mls/hr Metronidazole 500 mg/ Premix 100 mls @ 100 mls/hr IV ONETIME ONE Stop: 06/27/16 20:57 Last Admin: 06/27/16 22:05 Dose: Not Given Acetaminophen 1,000 mg/ Premix 100 mls @ 400 mls/hr IV NOW ONE Stop: 06/27/16 20:48 Last Admin: 06/27/16 21:04 Dose: 400 mls/hr Sodium Chloride (Normal Saline) 1,000 mls @ 500 mls/hr IV ASDIRECTED [facility] Last Admin: 06/27/16 22:09 Dose: 500 mls/hr Sodium Chloride (Normal Saline) 1,000 mls @ 999 mls/hr IV .BOLUS ONE Stop: 06/28/16 00:21 Last Admin: 06/27/16 23:48 Dose: 999 mls/hr Piperacillin Sod/Tazobactam (Sod 3.375 gm/ Sodium Chloride) 50 mls @ 100 mls/ hr IV Q6H [facility] Piperacillin/Tazobactam/ (Dextrose 3.375 gm/ Premix) 50 mls @ 100 mls/hr IV Q6H [facility] Last Admin: 06/30/16 05:52 Dose: 100 mls/hr Sodium Chloride (Normal Saline) Confirm Administered Dose 100 mls @ as directed .ROUTE .STK-MED ONE Stop: 06/28/16 00:28 Last Admin: 06/28/16 00:40 Dose: Not Given Norepinephrine Bitartrate 4 mg (/ Dextrose/Water) 250 mls @ 7.5 mls/hr IV TITRATE OPAL; 2 MCG/MIN PRN Reason: Protocol Last Titration: 06/30/16 13:06 Dose: 0 mcg/min, 0 mls/hr Sodium Chloride (Normal Saline) 250 mls @ 999 mls/hr IV ASDIRECTED [facility] Stop: 06/28/16 02:46 Last Admin: 06/28/16 02:57 Dose: 999 mls/hr Acetaminophen 1,000 mg/ Premix 100 mls @ 400 mls/hr IV Q6H PRN PRN Reason: Fever Stop: 06/29/16 05:03 Last Admin: 06/28/16 05:19 Dose: 400 mls/hr Sodium Chloride (Normal Saline) Confirm Administered Dose 100 mls @ as directed .ROUTE .STK-MED ONE Stop: 06/28/16 05:25 Last Admin: 06/28/16 05:32 Dose: Not Given Sodium Chloride (Normal Saline) 500 mls @ 999 mls/hr IV ASDIRECTED [facility] Stop: 06/28/16 09:31 Last Admin: 06/28/16 09:21 Dose: 999 mls/hr Magnesium Sulfate 2 gm/ Premix 50 mls @ 25 mls/hr IV Q6H [facility] Stop: 06/29/16 07:59 Last Admin: 06/29/16 05:41 Dose: 25 mls/hr Potassium Chloride/Sodium Chloride (Normal Saline With 20 Meq Kcl) 1,000 mls @ 100 mls/hr IV ASDIRECTED [facility] Last Admin: 07/01/16 01:45 Dose: 100 mls/hr Insulin Aspart (Novolog) 0 unit SUBCUT ASDIRECTED [facility] PRN Reason: Protocol Last Admin: 06/28/16 07:50 Dose: 5 units Insulin Detemir (Levemir) 20 unit SUBCUT BID [facility] Last Admin: 06/30/16 20:40 Dose: 20 unit Iopamidol (Isovue-300 (61%)) 78 ml IV . DIRECTED PRN PRN Reason: RADIOLOGY EXAM Stop: 06/27/16 19:23 Last Admin: 06/27/16 19:45 Dose: 100 ml Ketorolac Tromethamine (Toradol) 15 mg IVPUSH Q6H PRN PRN Reason: Pain/Fever Stop: 07/03/16 08:18 Last Admin: 06/29/16 08:51 Dose: 15 mg Lorazepam (Ativan) 1 mg IV Q6H PRN PRN Reason: Nausea/Vomiting Morphine Sulfate (Morphine) 2 mg IVPUSH Q2H PRN PRN Reason: Pain (severe 7-10) Last Admin: 07/01/16 02:03 Dose: 2 mg Ondansetron HCl (Zofran) 4 mg IVPUSH ONETIME ONE Stop: 06/27/16 18:23 Last Admin: 06/27/16 18:42 Dose: 4 mg Pantoprazole Sodium (Protonix Iv) 40 mg IV Q12H [facility] Last Admin: 06/28/16 00:18 Dose: 40 mg Potassium Chloride (Klor-Con M20) 40 meq PO ONETIME ONE Stop: 06/28/16 09:01 Last Admin: 06/28/16 09:27 Dose: 40 meq Sodium Chloride (Normal Saline) 10 ml FLUSH ONETIME ONE Stop: 06/27/16 19:23 Last Admin: 06/28/16 00:04 Dose: Not Given - Exam Quality Assessment: DVT prophylaxis General: alert, oriented, cooperative Lungs: Clear to auscultation, Normal respiratory effort Cardiovascular: Regular Rate, Regular Rhythm, No Murmurs Abdomen: bowel sounds present, soft, no tenderness, no distension Extremities: no edema Skin: warm, dry, intact - Problem List Review Problem List Initiated/Reviewed/Updated: Yes - My Orders Last 24 Hours: My Active Orders 07/01/16 08:29 Insulin Detemir [Levemir] 16 unit SUBCUT BID Convert IV to Saline Lock [OM.PC] Routine 07/01/16 09:54 Remove Rincon Catheter [Urinary Catheter Removal] [RC] Per Unit Routine Vital Signs [RC] Q4H 07/02/16 05:00 BASIC METABOLIC PANEL,BMP [CHEM] Timed CBC WITH AUTO DIFF [HEME] Timed - Plan Plan:: ASSESSMENT / PLAN Left-sided pyelonephritis with septic shock - stable now off of IV norepinephrine. Culture growing pansensitive Escherichia coli. -Continue ciprofloxacin -Saline marked IV -Discontinue Rincon catheter Diabetes mellitus type 2 - hemoglobin A1c elevated at greater than 12 suggesting suboptimal control for some time. sugars have improved with the addition of long-acting insulin. -Continue long-acting insulin twice daily -Sliding-scale insulin -start metformin tomorrow -She will need extensive diabetes education with an desk clerk prior to discharge Maintenance issues -Nutrition: Diabetic diet -Rincon catheter -DVT: SCD -GI; PPI -referral to Academic Affairs Manager -PT starting on Friday Disposition; home with family in 2-3 days [facility]: [place] [phone]
[2016-07-01] MEDS: metFORMIN 500 MG Tab PO SCH (16:56)
[2016-07-01] MEDS ORDERED: Bisacodyl 10 MG Supp RECTAL ONE (18:10)
[2016-07-01] MEDS ORDERED: Bisacodyl 10 MG Supp ONE (18:18)
[2016-07-02] MEDS: oxyCODONE 5 MG Tab PO PRN ×2 (02:13→08:00)
[2016-07-02] MEDS: Pantoprazole 40 MG Tab.CR PO SCH (07:50)
[2016-07-02] MEDS: Ciprofloxacin in D5W 400 MG in Premix Bag 1 BAG IV SCH ×2 (08:00)
[2016-07-02] MEDS: metFORMIN 500 MG Tab PO SCH (08:00)
[2016-07-02] MEDS: Insulin Aspart 100 Units/ML 3 ML Pen SUBCUT SCH (08:01)
[2016-07-02] MEDS ORDERED: Flu Vaccine 2016-17(36Mos+)/PF 60 MCG/0.5 ML Syringe IM ONE (09:30)
[2016-07-02 10:42] VITALS: BP 119/70
--- NOTE | 2016-07-02 13:30 | PCM.DCSUM1 ---
Discharge Summary - Hospital Course Brief History: This patient is a 55-year-old woman who is admitted through the emergency department with fever, weakness, and dehydration secondary to left pyelonephritis. - Discharge Data Discharge Date: 07/02/16 Discharge Disposition: Home, Self-Care 01 Condition: Fair - Discharge Diagnosis/Problem(s) (1) Diabetes mellitus type II, uncontrolled SNOMED Code(s): 47556094, 362814634 ICD Code: E11.65 - TYPE 2 DIABETES MELLITUS WITH HYPERGLYCEMIA Status: Acute Current Visit: Yes (2) Septic shock SNOMED Code(s): 09350877 ICD Code: A41.9 - SEPSIS, UNSPECIFIED ORGANISM; R65.21 - SEVERE SEPSIS WITH SEPTIC SHOCK Status: Acute Current Visit: Yes (3) Acute pyelonephritis SNOMED Code(s): 12982429 ICD Code: N10 - ACUTE PYELONEPHRITIS Status: Acute Priority: High Current Visit: Yes - Patient Summary/Data Consults: Consultations 06/27/16 23:23 Consult to Case Management [CONS] Routine Comment: Physician Instructions: Quantity: Consult to Press And [employer] Machine Tender [CONS] Routine Comment: Physician Instructions: Hospital Course: This patient is a 55-year-old woman who presented to the emergency department with a history of left flank and abdominal pain, as well as fever, weakness, and dehydration. She had significant elevation in temperature and white blood cell count, CT scan of the abdomen showed evidence of a left pyelonephritis. There was also some question of possible appendicitis although this was not definite based on CT criteria. On admission was started on IV antibiotics as well as IV fluids for hydration. Unfortunately she became unstable and developed severe hypotension consistent with sepsis septic shock associated with the pyelonephritis. She was transferred to the intensive care unit and given vigorous IV fluid replacement. Despite aggressive IV fluids blood pressure remained low and so she was started on IV norepinephrine. With use of the norepinephrine blood pressure stabilized and she remained on this over the next few days until the septic shock had resolved. Cultures were obtained at the time of admission and rule out barnes sensitive Escherichia coli. Antibiotic therapy was switched to IV ciprofloxacin. Also on admission was found to have marked elevation in glucose level, hemoglobin A1c was elevated at greater than 12. She was initially was treated with long-acting insulins as well as intermittent dosing with NovoLog. By the time of discharge blood sugars improve then she will be discharged home on metformin 500 mg by mouth twice daily. She was seen and evaluated by the coroner/medical examiner for instruction on diet and glucose monitoring. Followup appointment will be scheduled in the primary care clinic within one week. She will record daily glucose monitors and review them with primary care provider when seen for followup. She also will be discharged on additional 7 days of oral ciprofloxacin. Activity will be as tolerated and she will resume her usual diet. - Patient Instructions Diet: Diabetic Diet Activity: As Tolerated Other/Special Instructions: Schedule followup appointment in the internal medicine group within one week. Appointment is for followup of newly diagnosed diabetes as well as recent pyelonephritis with sepsis. - Discharge Plan Prescriptions/Med Rec: Ciprofloxacin HCl [Cipro] 500 mg PO BID #14 tablet metFORMIN [Glucophage] 500 mg PO BIDMEALS #60 tablet Home Medications: Home Meds Ciprofloxacin HCl [Cipro] 500 mg PO BID #14 tablet 07/02/16 [Rx] metFORMIN [Glucophage] 500 mg PO BIDMEALS #60 tablet 07/02/16 [Rx] Forms: ED Department Discharge Referrals: Camden Hameed MD [Physician] - - Patient Data Vitals - Most Recent: Last Vital Signs Temp 98.3 F 07/02/16 07:35 Pulse 77 07/02/16 07:35 Resp 18 07/02/16 07:35 BP 119/70 07/02/16 07:35 Pulse Ox 94 L 07/02/16 07:35 Weight - Most Recent: 115 lb 4.828 oz I&O - Last 24 hours: Intake & Output 07/01/16 07/02/16 07/02/16 22:59 06:59 14:59 Intake Total 945 1100 240 Output Total 751 1 1400 Balance 194 1099 -1160 Lab Results - Last 24 hrs: Laboratory Results - last 24 hr 07/01/16 07/02/16 07/02/16 Range/Units 18:21 04:45 04:45 WBC 13.2 H (4.5-11.0) K/uL RBC 3.66 (3.30-5.50) M/uL Hgb 10.9 L (12.0-15.0) g/dL Hct 31.2 L (36.0-48.0) % MCV 85 (80-98) fL MCH 30 (27-31) pg MCHC 35 (32-36) % Plt Count 198 (150-400) K/uL Neut % (Auto) 71 H (36-66) % Lymph % (Auto) 15 L (24-44) % [place] % (Auto) 12 H (2-6) % Eos % (Auto) 3 (2-4) % Baso % (Auto) 1 (0-1) % Sodium 136 L (140-148) mmol/L Potassium 3.7 (3.6-5.2) mmol/L Chloride 100 (100-108) mmol/L Carbon Dioxide 25 (21-32) mmol/L Anion Gap 14.7 H (5.0-14.0) mmol/L BUN 7 (7-18) mg/dL Creatinine 0.6 (0.6-1.0) mg/dL Est Cr Clr Drug Dosing 75.20 mL/min Estimated GFR (MDRD) > 60 (>60) Glucose 126 H (74-106) mg/dL Calcium 8.0 L (8.5-10.1) mg/dL Urine Color Yellow Urine Appearance Clear Urine pH 6.0 (4.5-8.0) Ur Specific [place] 1.010 (1.008-1.030) Urine Protein Negative (NEGATIVE) mg/dL Urine Glucose (UA) Normal (NEGATIVE) mg/dL Urine Ketones Negative (NEGATIVE) mg/dL Urine Occult Blood Negative (NEGATIVE) Urine Nitrite Negative (NEGATIVE) Urine Bilirubin Negative (NEGATIVE) Urine Urobilinogen Normal (NORMAL) mg/dL Ur Leukocyte Esterase Negative (NEGATIVE) Urine RBC 0-5 (0-5) Urine WBC 0-5 (0-5) Ur Epithelial Cells Few Amorphous Sediment Not seen Urine Bacteria Few Urine Mucus Rare Med Orders - Current: Current Medications Acetaminophen (Tylenol) 650 mg PO Q4H PRN PRN Reason: Pain/Fever Last Admin: 06/28/16 10:15 Dose: 650 mg Albuterol (Proventil Neb Soln) 2.5 mg NEB Q4H PRN PRN Reason: Shortness Of Breath/wheezing Docusate Sodium (Colace) 100 mg PO BID PRN PRN Reason: Constipation Last Admin: 06/29/16 07:59 Dose: 100 mg Ciprofloxacin/Dextrose 400 mg/ (Premix) 200 mls @ 200 mls/hr IV Q12H OPAL Last Admin: 07/02/16 08:00 Dose: 200 mls/hr Insulin Aspart (Novolog) 0 unit SUBCUT ASDIRECTED [facility] PRN Reason: Protocol Last Admin: 07/02/16 08:01 Dose: 3 units Insulin Detemir (Levemir) 16 unit SUBCUT BEDTIME [facility] Last Admin: 07/01/16 21:36 Dose: Not Given Magnesium Hydroxide (Milk Of Magnesia) 30 ml PO Q12H PRN PRN Reason: Constipation Last Admin: 06/29/16 08:46 Dose: 30 ml Metformin HCl (Glucophage) 500 mg PO BIDMEALS [facility] Last Admin: 07/02/16 08:00 Dose: 500 mg Ondansetron HCl (Zofran) 4 mg IVPUSH Q4H PRN PRN Reason: Nausea/Vomiting Oxycodone HCl (Oxycodone) 5 - 10 mg PO Q4H PRN PRN Reason: Pain Last Admin: 07/02/16 08:00 Dose: 5 mg Pantoprazole Sodium (Protonix) 40 mg PO DAILY@0730 [facility] Last Admin: 07/02/16 07:50 Dose: 40 mg Discontinued Medications Ascorbic Acid (Vitamin C) 500 mg PO ONETIME ONE Stop: 06/27/16 23:29 Last Admin: 06/28/16 01:12 Dose: Not Given Bisacodyl (Dulcolax) 10 mg RECTAL ONETIME ONE Stop: 07/01/16 18:11 Last Admin: 07/01/16 18:30 Dose: 10 mg Bisacodyl (Dulcolax) Confirm Administered Dose 10 mg .ROUTE .STK-MED ONE Stop: 07/01/16 18:19 Last Admin: 07/01/16 18:31 Dose: Not Given Diphtheria/Tetanus/Acell Pertussis (Adacel) 0.5 ml IM .ONCE ONE Stop: 06/27/16 21:29 Last Admin: 06/28/16 01:29 Dose: 0.5 ml Furosemide (Lasix) 20 mg IVPUSH DAILY [facility] Stop: 07/01/16 09:01 Last Admin: 07/01/16 09:26 Dose: 20 mg Hydrocortisone Sodium Succinate (Solu-Cortef) 100 mg IVPUSH ONETIME ONE Stop: 06/27/16 23:22 Last Admin: 06/28/16 00:32 Dose: 100 mg Hydrocortisone Sodium Succinate (Solu-Cortef) 100 mg IVPUSH ONETIME ONE Stop: 06/28/16 09:31 Last Admin: 06/28/16 09:38 Dose: 100 mg Hydromorphone HCl (Dilaudid) 0.5 mg IVPUSH ONETIME ONE Stop: 06/27/16 18:22 Last Admin: 06/27/16 18:45 Dose: 0.5 mg Hydromorphone HCl (Dilaudid) 1 mg IVPUSH Q2H PRN PRN Reason: Abdominal Pain Last Admin: 06/27/16 23:45 Dose: 1 mg Hydromorphone HCl (Dilaudid) 0.5 - 1 mg IVPUSH Q2H PRN PRN Reason: Abdominal Pain Last Admin: 06/28/16 16:14 Dose: 0.5 mg Sodium Chloride (Normal Saline) 1,000 mls @ [facility] Last Admin: 06/27/16 18:41 Dose: 500 mls/hr Sodium Chloride (Normal Saline) 70 mls @ 3 mls/sec IV ONETIME ONE Stop: 06/27/16 19:23 Last Admin: 06/27/16 19:45 Dose: 3 mls/sec Potassium Chloride/Sodium Chloride (Normal Saline With 20 Meq Kcl) 1,000 mls @ 150 [facility] Last Admin: 06/29/16 05:40 Dose: 150 mls/hr Ciprofloxacin/Dextrose 400 mg/ (Premix) 200 mls @ 200 mls/hr IV ONETIME ONE Stop: 06/27/16 20:57 Last Admin: 06/27/16 20:25 Dose: 200 mls/hr Metronidazole 500 mg/ Premix 100 mls @ 100 mls/hr IV ONETIME ONE Stop: 06/27/16 20:57 Last Admin: 06/27/16 22:05 Dose: Not Given Acetaminophen 1,000 mg/ Premix 100 mls @ 400 mls/hr IV NOW ONE Stop: 06/27/16 20:48 Last Admin: 06/27/16 21:04 Dose: 400 mls/hr Sodium Chloride (Normal Saline) 1,000 mls @ [facility] Last Admin: 06/27/16 22:09 Dose: 500 mls/hr Sodium Chloride (Normal Saline) 1,000 mls @ 999 mls/hr IV .BOLUS ONE Stop: 06/28/16 00:21 Last Admin: 06/27/16 23:48 Dose: 999 mls/hr Piperacillin Sod/Tazobactam (Sod 3.375 gm/ Sodium Chloride) 50 mls @ 100 mls/ hr IV Q6H OPAL Piperacillin/Tazobactam/ (Dextrose 3.375 gm/ Premix) 50 mls @ 100 mls/hr IV Q6H OPAL Last Admin: 06/30/16 05:52 Dose: 100 mls/hr Sodium Chloride (Normal Saline) Confirm Administered Dose 100 mls @ as directed .ROUTE .STK-MED ONE Stop: 06/28/16 00:28 Last Admin: 06/28/16 00:40 Dose: Not Given Norepinephrine Bitartrate 4 mg (/ Dextrose/Water) 250 mls @ 7.5 mls/hr IV TITRATE OPAL; 2 MCG/MIN PRN Reason: Protocol Last Titration: 06/30/16 13:06 Dose: 0 mcg/min, 0 mls/hr Sodium Chloride (Normal Saline) 250 mls @ 999 mls/hr IV ASDIRECTED [facility] Stop: 06/28/16 02:46 Last Admin: 06/28/16 02:57 Dose: 999 mls/hr Acetaminophen 1,000 mg/ Premix 100 mls @ 400 mls/hr IV Q6H PRN PRN Reason: Fever Stop: 06/29/16 05:03 Last Admin: 06/28/16 05:19 Dose: 400 mls/hr Sodium Chloride (Normal Saline) Confirm Administered Dose 100 mls @ as directed .ROUTE .STK-MED ONE Stop: 06/28/16 05:25 Last Admin: 06/28/16 05:32 Dose: Not Given Sodium Chloride (Normal Saline) 500 mls @ 999 mls/hr IV ASDIRECTED [facility] Stop: 06/28/16 09:31 Last Admin: 06/28/16 09:21 Dose: 999 mls/hr Magnesium Sulfate 2 gm/ Premix 50 mls @ 25 mls/hr IV Q6H OPAL Stop: 06/29/16 07:59 Last Admin: 06/29/16 05:41 Dose: 25 mls/hr Potassium Chloride/Sodium Chloride (Normal Saline With 20 Meq Kcl) 1,000 mls @ 100 mls/hr IV ASDIRECTED [facility] Last Admin: 07/01/16 01:45 Dose: 100 mls/hr Influenza Virus Vaccine (Fluzone/Fluarix Vaccine) 60 mcg IM .ONCE ONE Stop: 07/02/16 09:31 Last Admin: 07/02/16 10:14 Dose: 60 mcg Insulin Aspart (Novolog) 0 unit SUBCUT ASDIRECTED [facility] PRN Reason: Protocol Last Admin: 06/28/16 07:50 Dose: 5 units Insulin Detemir (Levemir) 20 unit SUBCUT BID [facility] Last Admin: 06/30/16 20:40 Dose: 20 unit Insulin Detemir (Levemir) 16 unit SUBCUT BID [facility] Last Admin: 07/01/16 08:40 Dose: 16 units Iopamidol (Isovue-300 (61%)) 78 ml IV . DIRECTED PRN PRN Reason: RADIOLOGY EXAM Stop: 06/27/16 19:23 Last Admin: 06/27/16 19:45 Dose: 100 ml Ketorolac Tromethamine (Toradol) 15 mg IVPUSH Q6H PRN PRN Reason: Pain/Fever Stop: 07/03/16 08:18 Last Admin: 06/29/16 08:51 Dose: 15 mg Lorazepam (Ativan) 1 mg IV Q6H PRN PRN Reason: Nausea/Vomiting Morphine Sulfate (Morphine) 2 mg IVPUSH Q2H PRN PRN Reason: Pain (severe 7-10) Last Admin: 07/01/16 02:03 Dose: 2 mg Ondansetron HCl (Zofran) 4 mg IVPUSH ONETIME ONE Stop: 06/27/16 18:23 Last Admin: 06/27/16 18:42 Dose: 4 mg Pantoprazole Sodium (Protonix Iv) 40 mg IV Q12H [facility] Last Admin: 06/28/16 00:18 Dose: 40 mg Potassium Chloride (Klor-Con M20) 40 meq PO ONETIME ONE Stop: 06/28/16 09:01 Last Admin: 06/28/16 09:27 Dose: 40 meq Sodium Chloride (Normal Saline) 10 ml FLUSH ONETIME ONE Stop: 06/27/16 19:23 Last Admin: 06/28/16 00:04 Dose: Not Given *Q Meaningful Use (DIS) - VTE *Q VTE Criteria *Q: - Stroke *Q Stroke Criteria *Q: - AMI *Q AMI Criteria *Q:
== END 2016-07-02 14:28 | disposition home or self-care (01) | DRG 871 ==
LOC: JP.ED 18:00 → JP.ICU 21:54
PROVIDERS: ADMIT Internal Medicine; ATTEND Hospitalist
DX: A41.9 Sepsis, unspecified organism (principal); R65.21 Severe sepsis with septic shock; N10 Acute pyelonephritis; Z79.84 Long term (current) use of oral hypoglycemic drugs; E11.65 Type 2 diabetes mellitus with hyperglycemia; B96.20 Unspecified Escherichia coli [E. coli] as the cause of diseases classified elsewhere; R51 Headache; R10.9 Unspecified abdominal pain
CPT/HCPCS: 36415; 51702; 70450; 71010; 71010-26; 74176; 74177; 80048; 80053; 80305; 81001; 82150; 82803; 82962; 83036; 83605; 83690; 83735; 84443; 85025; 85027; 86140; 87040; 87077; 87086; 87088; 87186; 90686; 90715; 96361; 96365; 96368; 96375; 99222-AI; 99232; 99233; 99238; 99285; 99285-25; A9270-GY; C9113; J0131; J0744; J1170; J1720; J1885; J1940; J2270; J2405; J2543; J3475; J3480; J7030; J7040; J7050; J7060; Q9967